=== PATIENT | female | born 1970 | race Caucasian/White ===

== ENCOUNTER → 2017-12-03 | Outpatient (REF) | payer BC | LOC: M SFHCWAGY 13:22 | DX: Z12.4 Encounter for screening for malignant neoplasm of cervix (principal) ==

== ENCOUNTER → 2017-12-03 | Outpatient (CLI) | payer BC | LOC: M WHC 13:10 | DX: Z12.31 Encounter for screening mammogram for malignant neoplasm of breast (principal) | CPT/HCPCS: G0123 ==

== ENCOUNTER → 2018-10-05 | Outpatient (REF) | payer BC ==
[2018-10-05 19:50] LABS: ALBUMIN 3.8 GM/DL (3.2-5.2); ALT/SGPT 16 U/L (12-78); BILIRUBIN,TOTAL 0.5 MG/DL (0.2-1.0); BLOOD UREA NITROGEN 21 MG/DL (7-18); CALCIUM LEVEL 8.9 MG/DL (8.5-10.1); CARBON DIOXIDE LEVEL 29 MEQ/L (21-32); CHLORIDE LEVEL 103 MEQ/L (98-107); CHOLESTEROL LEVEL 181 MG/DL (<200); CHOLESTEROL RISK RATIO 2.291 (<5); FREE T4 0.84 NG/DL (0.76-1.46); GLOMERULAR FILTRATION RATE > 60.0 (>58); GLUCOSE, FASTING 156 MG/DL (70-100); HDL CHOLESTEROL 79 MG/DL (>40); LDL CHOLESTEROL 93 MG/DL (<100); NON-HDL-C 102 MG/DL; POTASSIUM SERUM 4.3 MEQ/L (3.5-5.1); SODIUM LEVEL 137 MEQ/L (136-145); TOTAL PROTEIN 7.4 GM/DL (6.4-8.2); TRIGLYCERIDES LEVEL 47 MG/DL (<150)
[2018-10-05 19:51] LABS: TOTAL 25(OH) VITAMIN D 23.7 NG/ML (30.0-100.0)
[2018-10-05 19:58] LABS: HEMOGLOBIN A1c 9.9 %
[2018-10-05 20:00] LABS: BASO # 0.1 10^3/uL (0.0-0.2); BASO % 0.7 % (0.0-1.0); EOS # 0.1 10^3/uL (0.0-0.50); EOS % 1.4 % (0.0-3.0); HEMATOCRIT 38.9 % (36.0-47.0); HEMOGLOBIN 12.4 g/dl (12.0-15.5); LYMPH # 1.7 10^3/uL (1.5-4.5); LYMPH % 20.5 % (24.0-44.0); MEAN CORPUSCULAR HEMOGLOBIN 28.4 pg (27.0-33.0); MEAN CORPUSCULAR HGB CONC 31.9 g/dl (32.0-36.5); MONO # 0.8 10^3/uL (0.0-0.8); MONO % 9.3 % (0.0-5.0); NEUTROPHILS # 5.6 10^3/uL (1.8-7.7); NEUTROPHILS % 67.9 % (36.0-66.0); PLATELET COUNT, AUTOMATED 317 10^3/uL (150-450); RED BLOOD COUNT 4.37 10^6/uL (4.00-5.40); WHITE BLOOD COUNT 8.3 10^3/uL (4.0-10.0)
== END ==
LOC: M LABDRWAD 18:59
PROVIDERS: ATTEND Physician Assistant
DX: Z13.29 Encounter for screening for other suspected endocrine disorder (principal)

== ENCOUNTER → 2018-12-04 | Outpatient (CLI) | payer BC ==
--- NOTE | 2018-12-05 09:52 | REPMRS ---
Patient History The patient states she had a clinical breast exam in 11/2018. No known family history of cancer. Digital Woman Screen Mammo: December 04, 2018 - Exam #: [id number] Bilateral CC and MLO view(s) were taken. Technologist: Stella Mack, Technologist Prior study comparison: July 07, 2013, digital woman screen mammo performed at [facility]. FINDINGS: There are scattered fibroglandular densities. Bilateral screening digital mammogram with tomosynthesis: The patient states that there are no palpable abnormalities or other breast complaints. The patient's Tyrer-Cuzieck Lifetime Breast Carcinoma Risk is:10.3 There are scattered areas of fibroglandular density.. There is no interval development of dominant mass, areas of architectural distortion, or clustered microcalcification typical of malignancy. There are no additional findings on tomosynthesis. This mammogram was interpreted with the aid of an FDA-approved computer-aided dectection system. A. Negative x-ray reports should not delay biopsy if a dominant or clinically suspicious mass is present. B. Not all cancers are identified by mammography. C. Adenosis and dense breast may obscure an underlying neoplasm. No significant changes when compared with prior studies. Assessment: BI-RADS/ACR category 1 mammogram. Negative Mammogram. Recommendation Routine screening mammogram in 1 year (for women over age 40). This mammogram was interpreted with the aid of an FDA-approved computer-aided dectection system. A. Negative x-ray reports should not delay biopsy if a dominant or clinically suspicious mass is present. B. Not all cancers are identified by mammography. C. Adenosis and dense breast may obscure an underlying neoplasm. Electronically Signed By: Efraín Cassidy M.D. 12/05/18 [id number]
== END ==
LOC: M WHC 13:21
PROVIDERS: ATTEND Nurse Practitioner Women's Health
DX: Z12.31 Encounter for screening mammogram for malignant neoplasm of breast (principal)

== ENCOUNTER → 2018-12-18 | Outpatient (REF) | payer BC ==
[~2018-12-18] MED LIST: INSUHUMDS SC; LEVO150T7; LISI10TA4 PO; PRAV10TA3 PO; SYNT175T2 PO; VITA1CAP25 PO
[2018-12-18 12:56] LABS: BASO % 0.5 % (0.0-1.0); EOS # 0.1 10^3/uL (0.0-0.50); EOS % 1.8 % (0.0-3.0); HEMATOCRIT 38.3 % (36.0-47.0); HEMOGLOBIN 12.5 g/dl (12.0-15.5); LYMPH # 1.6 10^3/uL (1.5-4.5); LYMPH % 20.7 % (24.0-44.0); MEAN CORPUSCULAR HEMOGLOBIN 28.7 pg (27.0-33.0); MEAN CORPUSCULAR HGB CONC 32.6 g/dl (32.0-36.5); MONO # 0.9 10^3/uL (0.0-0.8); MONO % 10.9 % (0.0-5.0); NEUTROPHILS # 5.2 10^3/uL (1.8-7.7); NEUTROPHILS % 65.7 % (36.0-66.0); PLATELET COUNT, AUTOMATED 370 10^3/uL (150-450); RED BLOOD COUNT 4.35 10^6/uL (4.00-5.40); WHITE BLOOD COUNT 7.9 10^3/uL (4.0-10.0)
[2018-12-18 13:23] LABS: ALBUMIN 3.5 GM/DL (3.2-5.2); ALT/SGPT 17 U/L (12-78); BILIRUBIN,TOTAL 0.5 MG/DL (0.2-1.0); BLOOD UREA NITROGEN 20 MG/DL (7-18); CALCIUM LEVEL 8.8 MG/DL (8.5-10.1); CARBON DIOXIDE LEVEL 29 MEQ/L (21-32); CHLORIDE LEVEL 103 MEQ/L (98-107); CREATININE FOR GFR 0.92 MG/DL (0.55-1.30); FREE T4 1.45 NG/DL (0.76-1.46); GLOMERULAR FILTRATION RATE > 60.0 (>58); GLUCOSE, FASTING 296 MG/DL (70-100); POTASSIUM SERUM 4.9 MEQ/L (3.5-5.1); SODIUM LEVEL 137 MEQ/L (136-145); TOTAL PROTEIN 7.5 GM/DL (6.4-8.2)
[2018-12-18 14:54] LABS: HEMOGLOBIN A1c 9.2 %
== END ==
LOC: M LABDRWAD 12:39
PROVIDERS: ATTEND Physician Assistant
DX: E11.65 Type 2 diabetes mellitus with hyperglycemia (principal); E03.9 Hypothyroidism, unspecified

== ENCOUNTER 2018-12-27 15:45 | Inpatient (IN) | payer BC ==
[~2018-12-27] VITALS: Ht 165.1 cm; Wt 90.5 kg
[2018-12-27] MEDS ORDERED: INSUHUMDS SC (16:00)
[2018-12-27] MEDS ORDERED: PRAV10TA3 PO (16:00)
[2018-12-27] MEDS ORDERED: LISI10TA4 PO (16:00)
[2018-12-27] MEDS ORDERED: LEVO150T7 (16:00)
[2018-12-27 16:59] LABS: BASO # 0.1 10^3/uL (0.0-0.2); BASO % 0.4 % (0.0-1.0); EOS % 0.1 % (0.0-3.0); HEMATOCRIT 38.6 % (36.0-47.0); HEMOGLOBIN 12.8 g/dl (12.0-15.5); LYMPH # 0.8 10^3/uL (1.5-4.5); LYMPH % 4.3 % (24.0-44.0); MEAN CORPUSCULAR HEMOGLOBIN 29.6 pg (27.0-33.0); MEAN CORPUSCULAR HGB CONC 33.2 g/dl (32.0-36.5); MEAN CORPUSCULAR VOLUME 89.1 fl (80.0-96.0); MONO # 0.6 10^3/uL (0.0-0.8); MONO % 3.3 % (0.0-5.0); NEUTROPHILS # 17.5 10^3/uL (1.8-7.7); NEUTROPHILS % 91.3 % (36.0-66.0); PLATELET COUNT, AUTOMATED 324 10^3/uL (150-450); RED BLOOD COUNT 4.33 10^6/uL (4.00-5.40); WHITE BLOOD COUNT 19.2 10^3/uL (4.0-10.0)
[2018-12-27] MEDS ORDERED: ONDANSETRON 4MG/2ML VIAL (J2405) As Ordered ONE (17:17)
[2018-12-27] MEDS ORDERED: ONDANSETRON 4MG/2ML VIAL (J2405) IV ONE ×2 (17:30→17:45)
[2018-12-27 17:48] LABS: ALBUMIN 4.1 GM/DL (3.2-5.2); ALT/SGPT 20 U/L (12-78); BILIRUBIN,DIRECT 0.3 MG/DL (0.0-0.2); BILIRUBIN,TOTAL 0.9 MG/DL (0.2-1.0); BLOOD UREA NITROGEN 28 MG/DL (7-18); CALCIUM LEVEL 9.7 MG/DL (8.5-10.1); CARBON DIOXIDE LEVEL 21 MEQ/L (21-32); CHLORIDE LEVEL 100 MEQ/L (98-107); CREATININE FOR GFR 1.26 MG/DL (0.55-1.30); GLOMERULAR FILTRATION RATE 48.2 (>58); GLUCOSE, FASTING 451 MG/DL (70-100); LIPASE 45 U/L (73-393); POTASSIUM SERUM 4.4 MEQ/L (3.5-5.1); SODIUM LEVEL 133 MEQ/L (136-145); TOTAL PROTEIN 8.2 GM/DL (6.4-8.2)
[2018-12-27 17:52] LABS: ABG BASE EXCESS -8.4 (-2.0-2.0); ABG HCO3 16.6 MEQ/L (22.0-26.0); ABG O2 SATURATION 97.6 % (95.0-99.0); ABG PARTIAL PRESSURE CO2 32.8 mmHg (35.0-45.0); ABG PARTIAL PRESSURE O2 103.8 mmHg (75.0-100.0); ABG STANDARD HCO3 17.8 MEQ/L (22.0-26.0); ABG TOTAL CO2 17.6 MEQ/L (22.0-29.0); ABG pH (ARTERIAL) 7.323 UNITS (7.350-7.450)
[2018-12-27] MEDS ORDERED: PROMETHAZINE INJ 25 MG/ML VIAL (J2550) As Ordered ONE (18:26)
[2018-12-27] MEDS ORDERED: NS 1,000 ML IV ONE ×2 (18:30→23:00)
[2018-12-27] MEDS ORDERED: PROMETHAZINE INJ 25 MG/ML VIAL (J2550) IV ONE (18:30)
[2018-12-27] MEDS ORDERED: ISOVUE-370 76% 100ML VIAL (Q9967) As Ordered ONE (18:35)
--- NOTE | 2018-12-27 19:13 | REPVR ---
EXAM: CT Chest With Contrast EXAM DATE/TIME: 12/27/2018 6:30 PM CLINICAL HISTORY: 48 years old, female; Pain; Other: B shoulders; Additional info: Shoulder pain, bilateral TECHNIQUE: Imaging protocol: Axial computed tomography images of the chest with intravenous contrast. Coronal and sagittal reformatted images were created and reviewed. Radiation optimization: All CT scans at this facility use at least one of these dose optimization techniques: automated exposure control; mA and/or kV adjustment per patient size (includes targeted exams where dose is matched to clinical indication); or iterative reconstruction. Contrast material: ISOVUE 370; Contrast volume: 100 ml; Contrast route: IV; COMPARISON: No relevant prior studies available. FINDINGS: Lungs: Pulmonary vascular/interstitial pattern does not suggest active pulmonary edema. No suspicious lung mass or air space process. No central endobronchial lesion. Pleural space: No pleural effusion or pneumothorax. Heart: No cardiac enlargement or pericardial effusion. Aorta: No thoracic aortic aneurysm or dissection. Lymph nodes: No enlarged lymph nodes. Bones/joints: Bony structures show no acute fracture or destructive process. Normal glenohumeral and a.c. joint alignment. No fracture or destructive process. Mild right a.c. joint degenerative osteoarthrosis Soft tissues: No asymmetric abnormality of the extrathoracic soft tissues. IMPRESSION: Unremarkable contrast enhanced CT of the chest. No explanation for acute bilateral shoulder pain Electronically signed by: Hugo Contreras On 12/27/2018 19:13:01 PM
[2018-12-27] MEDS: MORPHINE 2 MG/ML 1ML SYRINGE (J2270) IV PRN ×2 (19:17→23:00)
--- NOTE | 2018-12-27 19:17 | REPVR ---
EXAM: CT Abdomen and Pelvis With Contrast EXAM DATE/TIME: 12/27/2018 6:30 PM CLINICAL HISTORY: 48 years old, female; Vomiting; Abdominal pain; Additional info: Vomiting, abd pain TECHNIQUE: Imaging protocol: Axial computed tomography images of the abdomen and pelvis with intravenous contrast. Coronal and sagittal reformatted images were created and reviewed. Radiation optimization: All CT scans at this facility use at least one of these dose optimization techniques: automated exposure control; mA and/or kV adjustment per patient size (includes targeted exams where dose is matched to clinical indication); or iterative reconstruction. Contrast material: [id number]; Contrast volume: 100 ml; Contrast route: IV; COMPARISON: No relevant prior studies available. FINDINGS: Lungs: No suspicious mass or airspace process in the visualized lung bases. Liver: Liver appears normal with no focal abnormality. Gallbladder and bile ducts: Gallbladder is present and shows no evidence of gallstone. Pancreas: Pancreas appears normal. No focal mass or peripancreatic inflammation. Spleen: Spleen appears homogeneous without focal mass. Adrenals: Adrenal glands are normal in appearance. Kidneys and ureters: Kidneys appear normal, with no stone, solid mass or hydronephrosis. Stomach and bowel: No evidence of small bowel obstruction. No evidence of acute diverticulitis. Appendix: Appendix is not seen. No RLQ inflammation to suggest appendicitis. Intraperitoneal space: No pneumoperitoneum. Vasculature: Main portal and splenic veins enhance normally. Atherosclerotic change present in the aorta, without aneurysm. Lymph nodes: No enlarged lymph nodes. Bladder: Bladder appears normal. Reproductive: No enlargement of the uterus or ovaries. Bones/joints: Bony structures show no acute fracture or destructive process. Soft tissues: No effacement of normal fat planes in the ischiorectal fossa. IMPRESSION: No acute surgical or inflammatory intra-abdominal or pelvic process. No explanation for acute abdominal pain Electronically signed by: Hugo Contreras On 12/27/2018 19:17:08 PM
[2018-12-27 19:26] LABS: ACETONE/KETONE 20.15 MG/DL (<2.81); CPK CREATINE PHOSPHOKINASE 148 U/L (26-192); MB/CK RELATIVE INDEX 1.35 (< OR =4); TROPONIN I < 0.02 NG/ML (< 0.10)
[2018-12-27] MEDS ORDERED: HumaLOG INSULIN (NovoLOG) PER UNIT SC ONE (21:15)
--- NOTE | 2018-12-27 22:24 | REPVR ---
EXAM: US Abdomen Limited, Right Upper Quadrant EXAM DATE/TIME: 12/27/2018 10:14 PM CLINICAL HISTORY: 48 years old, female; Abdominal pain; Acute; Additional info: Ruq pain TECHNIQUE: Imaging protocol: Real-time ultrasound of the abdomen with image documentation. Examination was focused on the right upper quadrant. COMPARISON: CT ABD PELVIS WITH CONTRAST 12/27/2018 6:38 PM FINDINGS: Pancreas is only partially visualized due to bowel shadowing. Pancreas appeared normal on CT earlier today Liver demonstrates homogeneous echotexture, with no focal lesion. Gallbladder is anechoic. No stone, mural edema or pericholecystic fluid. No elicited pain to RUQ transducer pressure during the exam. Common bile duct measures 5 mm in diameter. Right kidney measures 10.3 cm in long axis. Right kidney appears normal. No free fluid. IMPRESSION: Unremarkable sonogram of the right upper quadrant. Electronically signed by: Hugo Contreras On 12/27/2018 22:24:24 PM
[2018-12-27] MEDS ORDERED: HumaLOG INSULIN (NovoLOG) PER UNIT SC STA (23:43)
[2018-12-27] MEDS ORDERED: LEVEMIR (INSULIN DETEMIR) 1 UNITS/0.01ML SC ONE (23:45)
[2018-12-27] MEDS ORDERED: DEXTROSE 50% 50 ML SYRINGE IV PRN (23:45)
[2018-12-27] MEDS ORDERED: GLUCAGON FOR INJ 1 MG VIAL (J1610) SC PRN (23:45)
[2018-12-27] MEDS ORDERED: GLUCOSE 4 GM CHEW TABLET PO PRN (23:45)
[2018-12-27] MEDS ORDERED: NS 1,000 ML IV SCH (23:45)
[2018-12-27] MEDS ORDERED: SYNT175T2 PO (23:58)
[2018-12-27] MEDS ORDERED: VITA1CAP25 PO (23:58)
[2018-12-28] VITALS (8 sets, daily range): BP systolic 88–113; BP diastolic 50–59
[2018-12-28] MEDS ORDERED: ONDANSETRON 4MG/2ML VIAL (J2405) IV PRN (01:15)
--- NOTE | 2018-12-28 01:17 | HPEPDOC ---
General Date of Admission Dec 27, 2018 at 23:43 Date of Service: Dec 27, 2018 Chief Complaint The patient is a 48-year-old female admitted with a reason for visit of Uncontrolled Diabetes Mellitus. History of Present Illness 48-year-old female with past medical history of hypothyroidism, hypertension, type 1 diabetes mellitus on an insulin pump, and dyslipidemia presents to the ER with a chief complaint of intractable nausea/vomiting and diarrhea. The patient states that her symptoms started acutely this morning. Her clinical history is somewhat limited due to her intractable nausea and generalized fatigue. According to the patient's , who is at the bedside, the patient's insulin pump became disconnected earlier today and the patient tried to reconnected on her own. Later in the day, the patient voiced complaints of intractable nausea/vomiting/diarrhea. She also complained of nonspecific abdominal pain. At home, her blood sugar levels were noted to be in the 400s. She came to the ER for further evaluation and management. In the ER, the patient's blood sugar levels noted to be over 400. Initial BMP did not reveal an anion gap. Imaging including a CT of the chest, abdomen, and p viri did not reveal any acute findings. An ultrasound the gallbladder also did not reveal any acute findings. The patient will be admitted to the hospitalist service for further evaluation and management. Home Medications Scheduled Cholecalciferol (Vitamin D3) (Vitamin D3) 50,000 Unit Capsule, 50,000 UNIT PO 1XWK, (Reported) Insulin Human Lispro (Humalog) 100 Unit/1 Ml Vial, 1 UNIT SC SLIDING SCALE, (Reported) INSULIN PUMP Levothyroxine Sodium (Synthroid) 175 Mcg Tablet, 175 MCG PO DAILY, (Reported) Lisinopril (Lisinopril) 10 Mg Tablet, 10 MG PO QHS, (Reported) Pravastatin Sodium (Pravastatin Sodium) 10 Mg Tablet, 10 MG PO QHS, (Reported) Allergies Coded Allergies: No Known Allergies (Unverified , 07/13/08) Past Medical History Medical History As noted in HPI. Social History * Smoker: Denies Alcohol: Denies Drugs: denies Review of Systems Other systems 10 point review of systems negative unless otherwise specified in the HPI. Physical Examination General Exam: Positive: Alert, Cooperative, Mild Distress (secondary to nausea) ENT Exam: Positive: Atraumatic; Negative: Mucous membr. moist/pink (dry mucous membranes) Neck Exam: Negative: JVD Chest Exam: Positive: Clear to auscultation, Normal air movement Heart Exam: Positive: Tachycardic, Normal S1, Normal S2 Telemetry: Positive: Sinus Abdomen Exam: Positive: BS Hyperactive, Soft, Tenderness (mild tenderness to deep palpation in all quadrants, no rebound tenderness, guarding, or rigidity noted.) Extremity Exam: Negative: Tenderness, Swelling Psych Exam: Positive: Oriented x 3 Vital Signs Vital Signs Date Time Temp Pulse Resp B/P (MAP) Pulse Ox O2 Delivery O2 Flow Rate FiO2 12/27/18 23:00 19 12/27/18 18:46 108 128/71 (90) 100 Room Air 12/27/18 15:54 97.2 Laboratory Data Labs 24H Laboratory Tests 2 12/27/18 15:56: Bedside Glucose (Misc Panel) 478H 12/27/18 16:26: Immature Granulocyte % (Auto) 0.6, White Blood Count 19.2H, Red Blood Count 4.33, Hemoglobin 12.8, Hematocrit 38.6, Mean Corpuscular Volume 89.1, Mean Corpuscular Hemoglobin 29.6, Mean Corpuscular Hemoglobin Concent 33.2, Red Cell Distribution Width 12.3, Platelet Count 324, Neutrophils (%) (Auto) 91.3H, Lymphocytes (%) (Auto) 4.3L, Monocytes (%) (Auto) 3.3, Eosinophils (%) (Auto) 0.1, Basophils (%) (Auto) 0.4, Neutrophils # (Auto) 17.5H, Lymphocytes # (Auto) 0.8L, Monocytes # (Auto) 0.6, Eosinophils # (Auto) 0.0, Basophils # (Auto) 0.1, Nucleated Red Blood Cells % (auto) 0.0, Anion Gap 12, Glomerular Filtration Rate 48.2L, Calcium Level 9.7, Aspartate Amino Transf (AST/SGOT) 20, Alanine Aminotransferase (ALT/SGPT) 20, Alkaline Phosphatase 100, Total Bilirubin 0.9, Direct Bilirubin 0.3H, Total Creatine Kinase 148, Creatine Kinase MB 2.0, Creatine Kinase MB Relative Index 1.35, Troponin I < 0.02, Total Protein 8.2, Albumin 4.1, Albumin/Globulin Ratio 1.00, Lipase 45L, B-Hydroxybutyrate 20.15H 12/27/18 17:42: Blood Gas Bicarbonate Standard 17.8L, Arterial Blood pH 7.323L, Arterial Blood Partial Pressure CO2 32.8L, Arterial Blood Partial Pressure O2 103.8H, Arterial Blood Total CO2 17.6L, Arterial Blood HCO3 16.6L, Arterial Blood Base Excess - 8.4L, Arterial Blood Oxygen Saturation 97.6 12/27/18 20:32: Bedside Glucose (Misc Panel) 424H 12/27/18 23:48: Bedside Glucose (Misc Panel) 462H 12/28/18 01:01: CBC/BMP Laboratory Tests 12/27/18 16:26 Red Blood Count 4.33, Mean Corpuscular Volume 89.1, Mean Corpuscular Hemoglobin 29.6, Mean Corpuscular Hemoglobin Concent 33.2, Red Cell Distribution Width 12.3, Neutrophils (%) (Auto) 91.3 H, Lymphocytes (%) (Auto) 4.3 L, Monocytes (%) (Auto) 3.3, Eosinophils (%) (Auto) 0.1, Basophils (%) (Auto) 0.4, Neutrophils # (Auto) 17.5 H, Lymphocytes # (Auto) 0.8 L, Monocytes # (Auto) 0.6, Eosinophils # (Auto) 0.0, Basophils # (Auto) 0.1 Plan / VTE VTE Prophylaxis Ordered?: Yes Plan Plan Uncontrolled Hyperglycemia in a Type 1 Diabetic possibly 2/2 Viral Gastroenteritis, Insulin Pump Malfunction CT Chest, abd, pel, and U/S GB with no acute findings Initial lab work with no anion gap noted, we will cont to monitor this closely We will continue to treat the patient IV fluid hydration, basal and bolus insulin coverage, and frequent monitoring of her fingersticks and laboratory values. We have instructed the patient not to use her insulin pump at this time, as we will be giving her insulin coverage subcutaneously. We will continue to monitor the patient, and keep her nothing by mouth at this time. Renal Insufficiency 2/2 Above Cont IVF Hydration Hold Nephrotoxins We will f/u with Repeat BMP Hypertension Lisinopril on hold 2/2 above Hypothyroidism Continue levothyroxine Dyslipidemia Continue statin DVT prophylaxis Continue RANDALL Snyder MD Dec 28, 2018 01:16
[2018-12-28 02:38] LABS: CREATININE FOR GFR 1.31 MG/DL (0.55-1.30); GLOMERULAR FILTRATION RATE 46.1 (>58)
[2018-12-28 02:39] LABS: CALCIUM LEVEL 8.3 MG/DL (8.5-10.1); MAGNESIUM LEVEL 2.1 MG/DL (1.8-2.4); POTASSIUM SERUM 3.7 MEQ/L (3.5-5.1)
[2018-12-28] MEDS ORDERED: POTASSIUM CHLORIDE 10 MEQ SR TABLET PO ONE ×2 (02:45→08:15)
[2018-12-28] MEDS ORDERED: NS 0.45% 1,000 ML IV SCH (02:45)
[2018-12-28] MEDS ORDERED: INSULIN HUMAN REGULAR 100 UNITS in NS 99 ML IV SCH (03:15)
[2018-12-28] MEDS: ENOXAPARIN 40 MG/0.4 ML SYRINGE (J1650) SC SCH (05:16)
[2018-12-28] MEDS: LEVOTHYROXINE 100MCG TABLET (0.1MG) PO SCH (05:17)
[2018-12-28] MEDS: LEVOTHYROXINE 75MCG TABLET (0.075MG) PO SCH (05:17)
[2018-12-28] MEDS: INSULIN IV RATE CHANGE DOCUMENTATION ML/HR XX SCH ×2 (06:03→07:00)
[2018-12-28] MEDS ORDERED: D5W/0.45% SODIUM CHLORIDE 1,000 ML IV SCH (06:15)
[2018-12-28 07:03] LABS: HEMATOCRIT 31.3 % (36.0-47.0); MEAN CORPUSCULAR HEMOGLOBIN 29.5 pg (27.0-33.0); MEAN CORPUSCULAR HGB CONC 32.6 g/dl (32.0-36.5); MEAN CORPUSCULAR VOLUME 90.5 fl (80.0-96.0); PLATELET COUNT, AUTOMATED 287 10^3/uL (150-450); RED BLOOD COUNT 3.46 10^6/uL (4.00-5.40); WHITE BLOOD COUNT 20.2 10^3/uL (4.0-10.0)
[2018-12-28 07:05] LABS: HEMOGLOBIN 10.2 g/dl (12.0-15.5)
[2018-12-28 07:43] LABS: ALBUMIN 2.8 GM/DL (3.2-5.2); BILIRUBIN,TOTAL 0.4 MG/DL (0.2-1.0); CALCIUM LEVEL 8.2 MG/DL (8.5-10.1); CREATININE FOR GFR 1.26 MG/DL (0.55-1.30); GLOMERULAR FILTRATION RATE 48.2 (>58); POTASSIUM SERUM 3.3 MEQ/L (3.5-5.1); TOTAL PROTEIN 6.3 GM/DL (6.4-8.2)
[2018-12-28] MEDS ORDERED: LEVEMIR (INSULIN DETEMIR) 1 UNITS/0.01ML SC SCH (09:00)
[2018-12-28] MEDS: LEVEMIR (INSULIN DETEMIR) 1 UNITS/0.01ML SC SCH ×2 (09:11→22:00)
[2018-12-28 09:29] LABS: ABG BASE EXCESS -5.6 (-2.0-2.0); ABG HCO3 18.5 MEQ/L (22.0-26.0); ABG O2 SATURATION 97.2 % (95.0-99.0); ABG PARTIAL PRESSURE CO2 31.5 mmHg (35.0-45.0); ABG PARTIAL PRESSURE O2 90.5 mmHg (75.0-100.0); ABG STANDARD HCO3 19.9 MEQ/L (22.0-26.0); ABG TOTAL CO2 19.5 MEQ/L (22.0-29.0); ABG pH (ARTERIAL) 7.387 UNITS (7.350-7.450)
[2018-12-28 09:49] LABS: CALCIUM LEVEL 8.1 MG/DL (8.5-10.1); CREATININE FOR GFR 1.27 MG/DL (0.55-1.30); GLOMERULAR FILTRATION RATE 47.8 (>58); POTASSIUM SERUM 3.6 MEQ/L (3.5-5.1)
[2018-12-28] MEDS: CEPACOL LOZENGE PO PRN ×3 (11:28→20:12)
[2018-12-28] MEDS ORDERED: NS 1,000 ML IV ONE ×2 (12:00→17:00)
[2018-12-28 12:42] LABS: CREATININE FOR GFR 1.27 MG/DL (0.55-1.30); GLOMERULAR FILTRATION RATE 47.8 (>58); POTASSIUM SERUM 4.2 MEQ/L (3.5-5.1)
[2018-12-28] MEDS: HumaLOG INSULIN (NovoLOG) PER UNIT SC SCH ×2 (12:50→20:00)
[2018-12-28 16:04] LABS: CALCIUM LEVEL 7.7 MG/DL (8.5-10.1); CREATININE FOR GFR 1.33 MG/DL (0.55-1.30); GLOMERULAR FILTRATION RATE 45.3 (>58); POTASSIUM SERUM 4.5 MEQ/L (3.5-5.1)
--- NOTE | 2018-12-28 17:10 | IPNPDOC ---
Date Seen The patient was seen on 12/28/18. Progress Note SUBJECTIVE: still c/o mild abd pain diffuse /10 no nausea, vomiting, cough, sob, fever or chills. sbp 88mmHg s/p NS 1liter bolus. urine output has been minimal. CT chest, abd, pelvis is negative, but wbc 22, and procalcitonin 40 are worrisome for early bacterial infection. empirically on iv zosyn until white count and abdominal pain improve.no dysuria, urgency, frequency, flank pain. no cellulitic skin lesions. She complains of not being able to get any sleep last night into early this morn ing. Physical Examination VITALS: PLS SEE BELOW General Exam: arousable but goes back to sleep quickly. answers questions appropriately. ENT Exam: Positive: Atraumatic; Negative: Mucous membr. moist/pink (dry mucous membranes) Neck Exam: Negative: JVD Chest Exam: Positive: Clear to auscultation, Normal air movement Heart Exam: Positive: Tachycardic, Normal S1, Normal S2 Telemetry: Positive: Sinus Abdomen Exam: Positive: BS Hyperactive, Soft, Tenderness (mild tenderness to deep palpation in all quadrants, no rebound tenderness, guarding, or rigidity noted.) Extremity Exam: Negative: Tenderness, Swelling LABORATORY DATA, IMAGING STUDIES, MICROBIOLOGY: PLS SEE BELOW Assessment/Plan 48-year-old female with past medical history of hypothyroidism, hypertension, type 1 diabetes mellitus on an insulin pump, and dyslipidemia presents to the ER with a chief complaint of intractable nausea/vomiting and diarrhea. The patient states that her symptoms started acutely this morning. Her clinical history is somewhat limited due to her intractable nausea and generalized fatigue. According to the patient's , who is at the bedside, the patient's insulin pump became disconnected earlier today and the patient tried to reconnected on her own. Later in the day, the patient voiced complaints of intractable nausea/vomiting/diarrhea. She also complained of nonspecific abdominal pain. At home, her blood sugar levels were noted to be in the 400s. She came to the ER for further evaluation and management.In the ER, the patient's blood sugar levels noted to be over 400. Initial BMP did not reveal an anion gap. Imaging including a CT of the chest, abdomen, and pelvis did not reveal any acute findings. An ultrasound the gallbladder also did not reveal any acute findings. The patient will be admitted to the hospitalist service for further evaluation and management. DKA (+) serum ketones (+) high anion gap, resolved with insulin gtt Type 1 Diabetic possibly 2/2 Viral Gastroenteritis, Insulin Pump Malfunction CT Chest, abd, pel, and U/S GB with no acute findings Initial lab work with no anion gap noted, we will cont to monitor this closely We will continue to treat the patient IV fluid hydration, basal and bolus insulin coverage, and frequent monitoring of her fingersticks and laboratory values. We have instructed the patient not to use her insulin pump at this time, as we will be giving her insulin coverage subcutaneously. We will continue to monitor the patient, and kept her npo initially. SIRS wbc 22, tachycardic empiric abx iv zosyn due to hypotension [address] chest abd pelvis for source of infection Renal Insufficiency 2/2 Above Cont IVF Hydration Hold Nephrotoxins serial BMP strict i/o monitor urien output. Hypertension Lisinopril on hold 2/2 above currently with low blood pressure s/p ns iv bolus monitor urine output Hypothyroidism Continue levothyroxine Dyslipidemia Continue statin DVT prophylaxis Continue Lovenox VS, I&O, 24H, Fishbone Vital Signs/I&O Vital Signs Date Time Temp Pulse Resp B/P (MAP) Pulse Ox O2 Delivery O2 Flow Rate FiO2 12/28/18 05:21 99.8 114 20 107/54 (71) 100 12/28/18 04:28 Room Air I&O- Last 24 Hours up to 6 AM 12/28/18 06:00 Intake Total 2129 ml Balance 2129 ml Laboratory Data 24H LABS Laboratory Tests 2 12/27/18 15:56: Bedside Glucose (Misc Panel) 478H 12/27/18 16:26: Immature Granulocyte % (Auto) 0.6, White Blood Count 19.2H, Red Blood Count 4.33, Hemoglobin 12.8, Hematocrit 38.6, Mean Corpuscular Volume 89.1, Mean Corpuscular Hemoglobin 29.6, Mean Corpuscular Hemoglobin Concent 33.2, Red Cell Distribution Width 12.3, Platelet Count 324, Neutrophils (%) (Auto) 91.3H, Lymphocytes (%) (Auto) 4.3L, Monocytes (%) (Auto) 3.3, Eosinophils (%) (Auto) 0.1, Basophils (%) (Auto) 0.4, Neutrophils # (Auto) 17.5H, Lymphocytes # (Auto) 0.8L, Monocytes # (Auto) 0.6, Eosinophils # (Auto) 0.0, Basophils # (Auto) 0.1, Nucleated Red Blood Cells % (auto) 0.0, Anion Gap 12, Glomerular Filtration Rate 48.2L, Calcium Level 9.7, Aspartate Amino Transf (AST/SGOT) 20, Alanine Aminotransferase (ALT/SGPT) 20, Alkaline Phosphatase 100, Total Bilirubin 0.9, Direct Bilirubin 0.3H, Total Creatine Kinase 148, Creatine Kinase MB 2.0, Creatine Kinase MB Relative Index 1.35, Troponin I < 0.02, Total Protein 8.2, Albumin 4.1, Albumin/Globulin Ratio 1.00, Lipase 45L, B-Hydroxybutyrate 20.15H 12/27/18 17:42: Blood Gas Bicarbonate Standard 17.8L, Arterial Blood pH 7.323L, Arterial Blood Partial Pressure CO2 32.8L, Arterial Blood Partial Pressure O2 103.8H, Arterial Blood Total CO2 17.6L, Arterial Blood HCO3 16.6L, Arterial Blood Base Excess - 8.4L, Arterial Blood Oxygen Saturation 97.6 12/27/18 20:32: Bedside Glucose (Misc Panel) 424H 12/27/18 23:48: Bedside Glucose (Misc Panel) 462H 12/28/18 01:01: Anion Gap 17H, Glomerular Filtration Rate 46.1L, Blood Urea Nitrogen 28H, Creatinine 1.31H, Sodium Level 142#, Potassium Level 3.7, Chloride Level 111H, Carbon Dioxide Level 14L, Calcium Level 8.3L, Magnesium Level 2.1 12/28/18 03:56: Bedside Glucose (Misc Panel) 241H 12/28/18 05:50: Bedside Glucose (Misc Panel) 177H 12/28/18 06:34: Nucleated Red Blood Cells % (auto) 0.0 12/28/18 07:12: Bedside Glucose (Misc Panel) 169H CBC/BMP Laboratory Tests 12/27/18 16:26 Red Blood Count 4.33, Mean Corpuscular Volume 89.1, Mean Corpuscular Hemoglobin 29.6, Mean Corpuscular Hemoglobin Concent 33.2, Red Cell Distribution Width 12.3, Neutrophils (%) (Auto) 91.3 H, Lymphocytes (%) (Auto) 4.3 L, Monocytes (%) (Auto) 3.3, Eosinophils (%) (Auto) 0.1, Basophils (%) (Auto) 0.4, Neutrophils # (Auto) 17.5 H, Lymphocytes # (Auto) 0.8 L, Monocytes # (Auto) 0.6, Eosinophils # (Auto) 0.0, Basophils # (Auto) 0.1 12/28/18 01:01 Calcium Level 8.3 L 12/28/18 06:34 Red Blood Count 3.46 L, Mean Corpuscular Volume 90.5, Mean Corpuscular Hemoglobin 29.5, Mean Corpuscular Hemoglobin Concent 32.6, Red Cell Distribution Width 12.8 OLIVIA URBANO MD Dec 28, 2018 07:42
[2018-12-28] MEDS: NS 1,000 ML IV SCH (18:00)
[2018-12-28] MEDS: PIPERACILLIN/TAZOBACTAM SOD 3.375 GM in D5W MINI-BAG PLUS 50 ML IV SCH ×2 (18:15→23:47)
[2018-12-28 18:31] LABS: HEMOGLOBIN A1c 8.8 %
[2018-12-28] MEDS: PRAVASTATIN 10 MG TAB PO SCH (20:12)
--- NOTE | 2018-12-28 20:36 | ECGEPIP ---
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
[2018-12-28] MEDS ORDERED: LISINOPRIL 10 MG TAB PO SCH (21:00)
[2018-12-28] MEDS ORDERED: HumaLOG INSULIN (NovoLOG) PER UNIT SC SCH ×2 (21:00)
[2018-12-29 04:15] VITALS: BP 131/74
[2018-12-29] MEDS: PIPERACILLIN/TAZOBACTAM SOD 3.375 GM in D5W MINI-BAG PLUS 50 ML IV SCH ×4 (04:17→23:41)
[2018-12-29] MEDS: CEPACOL LOZENGE PO PRN ×2 (04:27→23:11)
[2018-12-29] MEDS: ACETAMINOPHEN TAB 650MG DOSE (2X325MG) PO PRN ×2 (04:28→08:51)
[2018-12-29] MEDS: NS 1,000 ML IV SCH (06:29)
[2018-12-29] MEDS: ENOXAPARIN 40 MG/0.4 ML SYRINGE (J1650) SC SCH (06:29)
[2018-12-29] MEDS: LEVOTHYROXINE 100MCG TABLET (0.1MG) PO SCH (06:29)
[2018-12-29] MEDS: LEVOTHYROXINE 75MCG TABLET (0.075MG) PO SCH (06:29)
[2018-12-29 06:35] LABS: HEMATOCRIT 29.1 % (36.0-47.0); HEMOGLOBIN 9.4 g/dl (12.0-15.5); MEAN CORPUSCULAR HEMOGLOBIN 28.7 pg (27.0-33.0); MEAN CORPUSCULAR HGB CONC 32.3 g/dl (32.0-36.5); PLATELET COUNT, AUTOMATED 245 10^3/uL (150-450); RED BLOOD COUNT 3.27 10^6/uL (4.00-5.40)
[2018-12-29 07:07] LABS: CALCIUM LEVEL 7.5 MG/DL (8.5-10.1); CREATININE FOR GFR 1.07 MG/DL (0.55-1.30); GLOMERULAR FILTRATION RATE 58.3 (>58); POTASSIUM SERUM 4.3 MEQ/L (3.5-5.1)
[2018-12-29 08:00] VITALS: BP 131/73
[2018-12-29] MEDS: HumaLOG INSULIN (NovoLOG) PER UNIT SC SCH ×2 (08:39→13:39)
[2018-12-29] MEDS: LEVEMIR (INSULIN DETEMIR) 1 UNITS/0.01ML SC SCH (08:52)
[2018-12-29] MEDS ORDERED: HumaLOG INSULIN (NovoLOG) PER UNIT As Ordered ONE (13:36)
[2018-12-29] MEDS ORDERED: SLF 3 ML SYR IV PRN (14:15)
[2018-12-29 16:00] VITALS: BP 139/80
--- NOTE | 2018-12-29 17:10 | IPNPDOC ---
Text Note Date of Service The patient was seen on 12/29/18. NOTE S: patient admitted with DKA/SIRS. She was admitted with Abdomen pain, N,V, diarrhea and fever/cough. Patient states feels better and wants to go home. States no fever, no abdomen pain ,no N, no V, no more diarrhea. no other ill contacts at home. She is usually on insulin pump at home and has basal rate of 18.7 units and intermittent bolus rate depending on scale set up at [facility]. She is no longer in DKA. present in room O: Vitals as below General: pleasant, NAD AAOx3 HRRR no murmur LCTA no W/R/R Ext: no edema Abdomen: soft NT ND NABS Skin: no rashes or cellulitis; foot exam normal A/P: DKA - resolved (no longer with high anion gap). Was on insulin gtt Type 1 Diabetic possibly 2/2 Viral Gastroenteritis, Insulin Pump Malfunction CT Chest, abd, pel, and U/S GB with no acute findings restart insulin pump Diabetes - on [employer] insulin with insulin pump, with neuropathy, with hyperglycemia Restart insulin pump and d/c levemir/SSI SIRS (tachycardia,hypotension) - unknown source; initial wbc 22, with PCT 41; was started on empiric zosyn; unfortunately blood cultures not obtained. Repeat PCT improving (31). continue with zosyn and repeat PCT in AM. If fever - check blood cultures. Vamshi with CKD III due to DKA - RESOLVED d/c IVF and saline lock; Hold Nephrotoxins Hypertension - Lisinopril on hold due to hypotension, VAMSHI/CKD - will restart med Hypothyroidism - Continue levothyroxine Dyslipidemia - Continue statin DVT prophylaxis -lovenox VS,Fishbone, I+O VS, Fishbone, I+O Laboratory Tests 12/28/18 11:58 Calcium Level 8.0 L 12/28/18 15:22 Calcium Level 7.7 L 12/29/18 06:19 Calcium Level 7.5 L, Red Blood Count 3.27 L, Mean Corpuscular Volume 89.0, Mean Corpuscular Hemoglobin 28.7, Mean Corpuscular Hemoglobin Concent 32.3, Red Cell Distribution Width 13.1 Vital Signs Date Time Temp Pulse Resp B/P (MAP) Pulse Ox O2 Delivery O2 Flow Rate FiO2 12/29/18 08:00 98.1 94 18 131/73 (92) 96 12/28/18 04:28 Room Air I&O- Last 24 Hours up to 6 AM 12/29/18 06:00 Intake Total 1225 ml Output Total 2000 ml Balance -775 ml NICOLE ERNST DO Dec 29, 2018 11:20
--- NOTE | 2018-12-29 19:39 | REP ---
CHEST, TWO VIEWS: Two views of the chest are performed. There are small bilateral pleural effusions, with mild fluid in the right minor fissure. There is mild right base interstitial infiltrate. No definite infiltrate is seen on the left. The heart is not enlarged. The mediastinal silhouette is unremarkable. IMPRESSION: Small bilateral pleural effusions with right basilar interstitial infiltrate. Electronically Signed by Efraín Talavera MD 12/31/2018 11:34 A
[2018-12-29 20:00] VITALS: BP 136/75
[2018-12-29] MEDS ORDERED: LISINOPRIL 10 MG TAB PO SCH (21:00)
[2018-12-29 21:11] VITALS: BP 136/75
[2018-12-29] MEDS: PRAVASTATIN 10 MG TAB PO SCH (21:11)
[2018-12-29] MEDS: SLF 3 ML SYR IV SCH (23:42)
[2018-12-30] VITALS: BP 157/81
[2018-12-30] MEDS: BENZOCAINE 10% 9GM TUBE (ANBESOL) MT SCH ×2 (02:07→09:34)
[2018-12-30] MEDS: CEPACOL LOZENGE PO PRN (02:17)
[2018-12-30] MEDS: PIPERACILLIN/TAZOBACTAM SOD 3.375 GM in D5W MINI-BAG PLUS 50 ML IV SCH ×2 (05:56→11:00)
[2018-12-30] MEDS: LEVOTHYROXINE 75MCG TABLET (0.075MG) PO SCH (05:57)
[2018-12-30] MEDS: LEVOTHYROXINE 100MCG TABLET (0.1MG) PO SCH (05:57)
[2018-12-30] MEDS: SLF 3 ML SYR IV SCH (05:58)
[2018-12-30] MEDS: ENOXAPARIN 40 MG/0.4 ML SYRINGE (J1650) SC SCH (05:58)
[2018-12-30 06:52] LABS: MEAN CORPUSCULAR HEMOGLOBIN 28.5 pg (27.0-33.0); MEAN CORPUSCULAR HGB CONC 33.3 g/dl (32.0-36.5); MEAN CORPUSCULAR VOLUME 85.5 fl (80.0-96.0); PLATELET COUNT, AUTOMATED 256 10^3/uL (150-450); RED BLOOD COUNT 3.51 10^6/uL (4.00-5.40); WHITE BLOOD COUNT 8.9 10^3/uL (4.0-10.0)
[2018-12-30 07:15] LABS: ALBUMIN 2.7 GM/DL (3.2-5.2); ALT/SGPT 85 U/L (12-78); BILIRUBIN,TOTAL 0.4 MG/DL (0.2-1.0); BLOOD UREA NITROGEN 7 MG/DL (7-18); CALCIUM LEVEL 8.3 MG/DL (8.5-10.1); CARBON DIOXIDE LEVEL 28 MEQ/L (21-32); CHLORIDE LEVEL 107 MEQ/L (98-107); CREATININE FOR GFR 0.74 MG/DL (0.55-1.30); GLOMERULAR FILTRATION RATE > 60.0 (>58); GLUCOSE, FASTING 105 MG/DL (70-100); POTASSIUM SERUM 3.5 MEQ/L (3.5-5.1); SODIUM LEVEL 141 MEQ/L (136-145); TOTAL PROTEIN 6.2 GM/DL (6.4-8.2)
[2018-12-30] MEDS ORDERED: ENTER DRUG NAME HERE (PATIENT'S OWN MED) SC SCH (09:00)
[2018-12-30] MEDS ORDERED: SORE15LO PO (09:24)
[2018-12-30] MEDS ORDERED: AMOX875T2 PO (09:24)
[2018-12-30 09:30] VITALS: BP 145/83
--- NOTE | 2018-12-30 20:54 | DS.PDOC ---
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 HISTORY OF PRESENT ILLNESS: 48-year-old female with past medical history of hypothyroidism, hypertension, type 1 diabetes mellitus on an insulin pump, and dyslipidemia presents to the ER with a chief complaint of intractable nausea/vomiting and diarrhea. She was found to be in DKA. see H&P for details. HOSPITAL COURSE: Patient was placed on insulin drip and DKA resolved. Her insulin pump was disconnected during DKA treatment and restarted 24 hours prior to discharge. She had had elevated WBC that persisted after DKA was treated. She was placed on zosyn impirically on admission. Repeat CXR right basal infiltrate. Her initial wbc 22, with PCT 41 improved and she was changed to augmentin at discharge. unfortunately blood cultures not obtained. Her WBC was 8.9 and procalcitonin 14.3 at discharge. Her abdomen pain resolved. Patient was discharged in stable and improved condition. DISCHARGE MEDICATIONS: Please see below. ALLERGIES: Please see below. PHYSICAL EXAMINATION ON DISCHARGE: VITAL SIGNS: Please see below. General: pleasant, NAD AAOx3 HRRR no murmur LCTA no W/R/R LABORATORY DATA: Please see below. ACTIVITY: as tolerated DIET: carbohydrate consistent DISCHARGE PLAN: discharge home DISCHARGE INSTRUCTIONS: 1. repeat liver function test in 1 week 2. follow up in 5-7 days with PCP to recheck right basal pneumonia DISCHARGE CONDITION: stable TIME SPENT ON DISCHARGE: 30 minutes. Vital Signs/I&Os Vital Signs Date Time Temp Pulse Resp B/P (MAP) Pulse Ox O2 Delivery O2 Flow Rate FiO2 12/30/18 00:00 99.1 86 20 157/81 (106) 97 12/28/18 04:28 Room Air I&O- Last 24 Hours up to 6 AM 12/30/18 06:00 Intake Total 2180 ml Output Total 3300 ml Balance -1120 ml Laboratory Data Labs 24H Laboratory Tests 2 12/29/18 11:47: Bedside Glucose (Misc Panel) 201H 12/29/18 17:42: Bedside Glucose (Misc Panel) 236H 12/29/18 20:38: Bedside Glucose (Misc Panel) 186H 12/30/18 06:31: Nucleated Red Blood Cells % (auto) 0.0, Anion Gap 6L, Glomerular Filtration Rate > 60.0, Blood Urea Nitrogen 7#, Creatinine 0.74, Sodium Level 141, Potassium Level 3.5, Chloride Level 107, Carbon Dioxide Level 28, Calcium Level 8.3L, Aspartate Amino Transf (AST/SGOT) 117H, Alanine Aminotransferase (ALT/SGPT) 85H, Alkaline Phosphatase 106, Total Bilirubin 0.4, Total Protein 6.2L, Albumin 2.7L, Albumin/Globulin Ratio 0.77L CBC/BMP Laboratory Tests 12/30/18 06:31 Red Blood Count 3.51 L, Mean Corpuscular Volume 85.5, Mean Corpuscular Hemoglobin 28.5, Mean Corpuscular Hemoglobin Concent 33.3, Red Cell Distribution Width 12.6, Calcium Level 8.3 L, Aspartate Amino Transf (AST/SGOT) 117 H, Alanine Aminotransferase (ALT/SGPT) 85 H, Alkaline Phosphatase 106, Total Bilir ubin 0.4, Total Protein 6.2 L, Albumin 2.7 L FSBS Laboratory Tests Test 12/29/18 11:47 12/29/18 17:42 12/29/18 20:38 Range/Units Bedside Glucose (Misc Panel) 201 236 186 70-105 MG/DL Microbiology Microbiology 12/29/18 Gastrointestinal Tract Panel (PCR) - Final, Complete 12/30/18 Eye/Ear/Nose/Throat Culture, Received Pending 12/28/18 Respiratory Virus Panel (PCR) (ARIEL) - Final, Complete 12/28/18 Urine Culture - Final, Complete Discharge Medications Scheduled Amoxicillin/Potassium Clav (Amox-Clav 875-125 mg Tablet) 1 Each Tablet, 1 TAB PO BID Cholecalciferol (Vitamin D3) (Vitamin D3) 50,000 Unit Capsule, 50,000 UNIT PO 1XWK, (Reported) Insulin Human Lispro (Humalog) 100 Unit/1 Ml Vial, 1 UNIT SC SLIDING SCALE, (Reported) INSULIN PUMP Levothyroxine Sodium (Synthroid) 175 Mcg Tablet, 175 MCG PO DAILY, (Reported) Lisinopril (Lisinopril) 10 Mg Tablet, 10 MG PO QHS, (Reported) Pravastatin Sodium (Pravastatin Sodium) 10 Mg Tablet, 10 MG PO QHS, (Reported) Scheduled PRN Benzocaine/Menthol (Sore Throat Lozenge) 1 Each Lozenge, 1 MONTSE PO Q2HP PRN for SORE THROAT Allergies Coded Allergies: No Known Allergies (Unverified , 07/13/08) NICOLE ERNST DO Dec 30, 2018 09:27
== END 2018-12-30 12:10 | disposition home or self-care (01) | DRG 813 ==
LOC: M ED 15:45 → M ED INP 23:43 → M ICU 12-28 05:04 → M PED 12-28 19:03
PROVIDERS: ADMIT Internal Medicine; ATTEND Family Medicine
DX: T85.614A Breakdown (mechanical) of insulin pump, initial encounter (principal); E10.11 Type 1 diabetes mellitus with ketoacidosis with coma; N17.9 Acute kidney failure, unspecified; J15.9 Unspecified bacterial pneumonia; R65.10 Systemic inflammatory response syndrome (SIRS) of non-infectious origin without acute organ dysfunction; E10.65 Type 1 diabetes mellitus with hyperglycemia; T38.3X6A Underdosing of insulin and oral hypoglycemic [antidiabetic] drugs, initial encounter; E78.5 Hyperlipidemia, unspecified; E03.9 Hypothyroidism, unspecified; I10 Essential (primary) hypertension; A08.4 Viral intestinal infection, unspecified; N28.9 Disorder of kidney and ureter, unspecified; Z79.4 Long term (current) use of insulin; Z79.899 Other long term (current) drug therapy; Y83.1 Surgical operation with implant of artificial internal device as the cause of abnormal reaction of the patient, or of later complication, without mention of misadventure at the time of the procedure

== ENCOUNTER → 2019-04-01 | Outpatient (REF) | payer BC ==
[~2019-04-01] MED LIST changes: +AMOX875T2 PO; +SORE15LO PO
[2019-04-01 16:15] LABS: BASO # 0.1 10^3/uL (0.0-0.2); BASO % 0.8 % (0.0-1.0); EOS # 0.2 10^3/uL (0.0-0.5); EOS % 2.4 % (0.0-3.0); HEMOGLOBIN 12.7 g/dl (12.0-15.5); LYMPH # 1.9 10^3/uL (1.5-5.0); LYMPH % 28.9 % (24.0-44.0); MEAN CORPUSCULAR HEMOGLOBIN 29.5 pg (27.0-33.0); MEAN CORPUSCULAR HGB CONC 32.6 g/dl (32.0-36.5); MEAN CORPUSCULAR VOLUME 90.5 fl (80.0-96.0); MONO # 0.6 10^3/uL (0.0-0.8); MONO % 9.1 % (0.0-5.0); NEUTROPHILS # 3.9 10^3/uL (1.5-8.5); NEUTROPHILS % 58.5 % (36.0-66.0); PLATELET COUNT, AUTOMATED 373 10^3/uL (150-450); RED BLOOD COUNT 4.31 10^6/uL (4.00-5.40); WHITE BLOOD COUNT 6.6 10^3/uL (4.0-10.0)
[2019-04-01 16:26] LABS: ALBUMIN 3.3 GM/DL (3.2-5.2); ALT/SGPT 19 U/L (12-78); BILIRUBIN,TOTAL 0.5 MG/DL (0.2-1.0); BLOOD UREA NITROGEN 19 MG/DL (7-18); CALCIUM LEVEL 8.9 MG/DL (8.5-10.1); CARBON DIOXIDE LEVEL 31 MEQ/L (21-32); CHLORIDE LEVEL 102 MEQ/L (98-107); CHOLESTEROL LEVEL 138 MG/DL (<200); CREATININE FOR GFR 0.85 MG/DL (0.55-1.30); FREE T4 1.13 NG/DL (0.76-1.46); GLOMERULAR FILTRATION RATE > 60.0 (>58); GLUCOSE, FASTING 86 MG/DL (70-100); HDL CHOLESTEROL 66 MG/DL (>40); LDL CHOLESTEROL 62 MG/DL (<100); NON-HDL-C 72 MG/DL; POTASSIUM SERUM 5.1 MEQ/L (3.5-5.1); SODIUM LEVEL 137 MEQ/L (136-145); TOTAL PROTEIN 7.2 GM/DL (6.4-8.2); TRIGLYCERIDES LEVEL 50 MG/DL (<150)
[2019-04-01 16:41] LABS: HEMOGLOBIN A1c 8.5 %
[2019-04-01 16:58] LABS: MALB URINE SIEMENS 94.5 MG/L; MAU/CREAT RATIO 44.5 MCG/MG (0.0-30.0)
== END ==
LOC: M LABDRWAD 15:49
PROVIDERS: ATTEND Physician Assistant
DX: E11.65 Type 2 diabetes mellitus with hyperglycemia (principal)

== ENCOUNTER → 2019-10-26 | Outpatient (CLI) | payer BC ==
[~2019-10-26] MED LIST changes: +LISI10TA22 PO; -LISI10TA4 PO
== END ==
LOC: M LABSMTC 13:01
PROVIDERS: ATTEND Family Medicine
DX: Z11.59 Encounter for screening for other viral diseases (principal)
CPT/HCPCS: C9803; U0002

== ENCOUNTER → 2019-10-27 | Outpatient (REF) | payer BC ==
[~2019-10-27] MED LIST changes: -LISI10TA22 PO; +LISI10TA4 PO
== END ==
LOC: M LAB REF 17:11
PROVIDERS: ATTEND Physician Assistant
DX: J02.9 Acute pharyngitis, unspecified (principal)

== ENCOUNTER → 2019-12-31 | Outpatient (REF) | payer BC ==
[2019-12-31 13:21] LABS: HEMATOCRIT 40.1 % (36.0-47.0); MEAN CORPUSCULAR HEMOGLOBIN 29.7 pg (27.0-33.0); MEAN CORPUSCULAR HGB CONC 32.4 g/dl (32.0-36.5); MEAN CORPUSCULAR VOLUME 91.6 fl (80.0-96.0); RED BLOOD COUNT 4.38 10^6/uL (4.00-5.40); WHITE BLOOD COUNT 7.8 10^3/uL (4.0-10.0)
[2019-12-31 13:22] LABS: BASO # 0.1 10^3/uL (0.0-0.2); BASO % 0.9 % (0.0-1.0); EOS # 0.2 10^3/uL (0.0-0.5); EOS % 2.1 % (0.0-3.0); LYMPH # 1.7 10^3/uL (1.5-5.0); LYMPH % 21.8 % (24.0-44.0); MONO # 0.8 10^3/uL (0.0-0.8); MONO % 10.7 % (0.0-5.0); NEUTROPHILS % 64.1 % (36.0-66.0); PLATELET COUNT, AUTOMATED 324 10^3/uL (150-450)
[2019-12-31 13:37] LABS: ALBUMIN 3.4 GM/DL (3.2-5.2); ALT/SGPT 20 U/L (12-78); BILIRUBIN,TOTAL 0.5 MG/DL (0.2-1.0); BLOOD UREA NITROGEN 20 MG/DL (7-18); CALCIUM LEVEL 8.7 MG/DL (8.5-10.1); CARBON DIOXIDE LEVEL 29 MEQ/L (21-32); CHLORIDE LEVEL 104 MEQ/L (98-107); CREATININE FOR GFR 0.82 MG/DL (0.55-1.30); FREE T4 0.86 NG/DL (0.76-1.46); GLOMERULAR FILTRATION RATE > 60.0 (>58); GLUCOSE, FASTING 233 MG/DL (70-100); HEMOGLOBIN A1c 7.1 %; POTASSIUM SERUM 4.9 MEQ/L (3.5-5.1); SODIUM LEVEL 136 MEQ/L (136-145); TOTAL 25(OH) VITAMIN D 36.5 NG/ML (30.0-100.0); TOTAL PROTEIN 7.1 GM/DL (6.4-8.2)
== END ==
LOC: M LABDRWAD 12:48
PROVIDERS: ATTEND Physician Assistant
DX: E03.9 Hypothyroidism, unspecified (principal); E10.65 Type 1 diabetes mellitus with hyperglycemia

== ENCOUNTER → 2020-05-18 | Outpatient (CLI) | payer SELFPAY | LOC: M LABSMTC 14:47 | PROVIDERS: ATTEND Pediatrics | DX: Z20.828 Contact with and (suspected) exposure to other viral communicable diseases (principal) ==

== ENCOUNTER → 2020-11-06 | Outpatient (CLI) | payer BC ==
[~2020-11-06] MED LIST changes: +LISI10TA22 PO; -LISI10TA4 PO
--- NOTE | 2020-11-06 15:21 | REPMRS ---
Patient History The patient states she has not had a clinical breast exam in over a year. No known family history of cancer. Patient states no breast complaints. Patient has signed the MRS history sheet Digital Woman Screen Mammo: November 06, 2020 - Exam #: [id number] Bilateral CC and MLO view(s) were taken. Technologist: Stella Mack, Technologist Prior study comparison: December 04, 2018, bilateral digital woman screen mammo performed at [facility]. December 03, 2017, bilateral digital woman screen mammo performed at [facility]. July 06, 2014, digital woman screen mammo performed at [facility]. FINDINGS: There are scattered fibroglandular densities. The Volpara volumetric breast density category is:B. There has been no change in the appearance of the mammogram from the prior studies. There is a mild amount of scattered fibroglandular density which is fairly symmetric. There is no interval development of dominant mass, architectural distortion, or grouped microcalcification suggestive of malignancy. 3-D tomosynthesis shows no additional findings. Assessment: BI-RADS/ACR category 1 mammogram. Negative Mammogram. Recommendation Routine screening mammogram of both breasts in 1 year (for women over age 40). This patient's [facility] Lifetime Breast Cancer Risk is estimated at 9.9 %. This mammogram was interpreted with the aid of an FDA-approved computer-aided dectection system. Electronically Signed By: Doug Romero MD 11/06/20 [id number]
== END ==
LOC: M WHC 14:28
PROVIDERS: ATTEND Physician Assistant
DX: Z12.31 Encounter for screening mammogram for malignant neoplasm of breast (principal)

== ENCOUNTER → 2021-01-09 | Outpatient (REF) | payer BC ==
[2021-01-09 12:40] LABS: BASO % 0.7 % (0.0-1.0); EOS # 0.2 10^3/uL (0.0-0.5); EOS % 2.6 % (0.0-3.0); HEMATOCRIT 38.3 % (36.0-47.0); HEMOGLOBIN 12.2 g/dl (12.0-15.5); LYMPH # 1.5 10^3/uL (1.5-5.0); LYMPH % 25.5 % (24.0-44.0); MEAN CORPUSCULAR HEMOGLOBIN 28.6 pg (27.0-33.0); MEAN CORPUSCULAR HGB CONC 31.9 g/dl (32.0-36.5); MEAN CORPUSCULAR VOLUME 89.9 fl (80.0-96.0); MONO # 0.7 10^3/uL (0.0-0.8); MONO % 11.3 % (2.0-8.0); NEUTROPHILS # 3.4 10^3/uL (1.5-8.5); NEUTROPHILS % 59.4 % (36.0-66.0); PLATELET COUNT, AUTOMATED 253 10^3/uL (150-450); RED BLOOD COUNT 4.26 10^6/uL (4.00-5.40); WHITE BLOOD COUNT 5.7 10^3/uL (4.0-10.0)
[2021-01-09 12:57] LABS: ALBUMIN 3.2 GM/DL (3.2-5.2); ALT/SGPT 25 U/L (12-78); BILIRUBIN,TOTAL 0.5 MG/DL (0.2-1.0); BLOOD UREA NITROGEN 22 MG/DL (7-18); CALCIUM LEVEL 8.8 MG/DL (8.5-10.1); CARBON DIOXIDE LEVEL 28 MEQ/L (21-32); CHLORIDE LEVEL 105 MEQ/L (98-107); CHOLESTEROL LEVEL 139 MG/DL (<200); CHOLESTEROL RISK RATIO 1.957 (<5); CREATININE FOR GFR 0.77 MG/DL (0.55-1.30); GLOMERULAR FILTRATION RATE > 60.0 (>51); GLUCOSE, FASTING 337 MG/DL (70-100); HDL CHOLESTEROL 71 MG/DL (>40); LDL CHOLESTEROL 59 MG/DL (<100); NON-HDL-C 68 MG/DL; POTASSIUM SERUM 4.8 MEQ/L (3.5-5.1); SODIUM LEVEL 138 MEQ/L (136-145); THYROID STIMULATING HORMONE 0.017 uIU/ML (0.358-3.740); TOTAL PROTEIN 6.7 GM/DL (6.4-8.2); TRIGLYCERIDES LEVEL 44 MG/DL (<150)
[2021-01-09 15:21] LABS: HEMOGLOBIN A1c 8.4 %
== END ==
LOC: M LABDRWAD 12:12
PROVIDERS: ATTEND Physician Assistant
DX: E10.65 Type 1 diabetes mellitus with hyperglycemia (principal)

== ENCOUNTER → 2021-01-19 | Outpatient (CLI) | payer BC | LOC: M LABSMTC 09:36 | PROVIDERS: ATTEND Anesthesiology | DX: Z01.812 Encounter for preprocedural laboratory examination (principal); Z20.822 Contact with and (suspected) exposure to COVID-19 ==

== ENCOUNTER 2021-01-24 07:50 | Day surgery (SDC) | payer BC ==
[~2021-01-24] VITALS: Ht 175.3 cm; Wt 76.7 kg
[~2021-01-24 07:50] MED LIST changes: +NS 1,000 ML IV ONE
[2021-01-24] MEDS ORDERED: propofoL 200 MG/20 ML VIAL As Ordered ONE (08:21)
[2021-01-24] MEDS ORDERED: LIDOCAINE 2% 100MG/5ML SDV (FOR ANES.) As Ordered ONE (08:21)
--- NOTE | 2021-01-24 10:10 | ROOR ---
Patient Name: Soheila Styles Procedure Date: 01/24/2021 9:27 AM Date of : 1970 Age: 50 Room: [facility] Gender: Female Note Status: Finalized Procedure: Colonoscopy Indications: Screening for colorectal malignant neoplasm Providers: Jay Jay Benedict MD Referring MD: Elise DIETZ DO Requesting Provider: Medicines: Monitored Anesthesia Care Complications: No immediate complications. Procedure: Pre-Anesthesia Assessment: - Prior to the procedure, a History and Physical was performed, and patient medications and allergies were reviewed. The patient is competent. The risks and benefits of the procedure and the sedation options and risks were discussed with the patient. All questions were answered and informed consent was obtained. Patient identification and proposed procedure were verified by the physician, the nurse and the anesthesiologist in the endoscopy suite. Mental Status Examination: alert and oriented. Airway Examination: normal oropharyngeal airway and neck mobility. Respiratory Examination: clear to auscultation. CV Examination: normal. Prophylactic Antibiotics: The patient does not require prophylactic antibiotics. Prior Anticoagulants: The patient has taken no previous anticoagulant or antiplatelet agents. ASA Grade Assessment: II - A patient with mild systemic disease. After reviewing the risks and benefits, the patient was deemed in satisfactory condition to undergo the procedure. The anesthesia plan was to use monitored anesthesia care (MAC). Immediately prior to administration of medications, the patient was re-assessed for adequacy to receive sedatives. The heart rate, respiratory rate, oxygen saturations, blood pressure, adequacy of pulmonary ventilation, and response to care were monitored throughout the procedure. The physical status of the patient was re-assessed after the procedure. The Colonoscope was introduced through the anus and advanced to the terminal ileum, with identification of the appendiceal orifice and IC valve. The colonoscopy was somewhat difficult due to a tortuous colon. The patient tolerated the procedure well. The quality of the bowel preparation was adequate to identify polyps. Findings: The perianal and digital rectal examinations were normal. Two flat polyps were found in the sigmoid colon. The polyps were diminutive in size. These polyps were removed with a jumbo cold forceps. Resection and retrieval were complete. Estimated blood loss was minimal. Internal hemorrhoids were found during retroflexion. The hemorrhoids were small. Impression: - Two diminutive polyps in the sigmoid colon, removed with a jumbo cold forceps. Resected and retrieved. - Internal hemorrhoids. Recommendation: - Repeat colonoscopy in 5 years for surveillance. - Await pathology results. Procedure Code(s): --- Professional --- 97795, Colonoscopy, flexible; with biopsy, single or multiple Diagnosis Code(s): --- Professional --- Z12.11, Encounter for screening for malignant neoplasm of colon K63.5, Polyp of colon K64.8, Other hemorrhoids CPT copyright 2019 [employer]. All rights reserved. The codes documented in this report are preliminary and upon civil engineering manager review may be revised to meet current compliance requirements. Jay Jay Benedict MD Jay Jay Benedict MD 01/24/2021 10:10:30 AM Electronically signed by Jay Jay Benedict MD Number of Addenda: 0 Note Initiated On: 01/24/2021 9:27 AM Estimated Blood Loss: Estimated blood loss was minimal.
[2021-01-24 10:32] VITALS: BP 122/76
== END 2021-01-24 10:34 | disposition home or self-care (01) ==
LOC: M OPP 07:50
PROVIDERS: ATTEND Surgery
DX: Z12.11 Encounter for screening for malignant neoplasm of colon (principal); D12.5 Benign neoplasm of sigmoid colon; K64.8 Other hemorrhoids; E10.9 Type 1 diabetes mellitus without complications; Z96.41 Presence of insulin pump (external) (internal); Z79.899 Other long term (current) drug therapy

== ENCOUNTER → 2021-08-17 | Outpatient (REF) | payer BC ==
[~2021-08-17] MED LIST changes: -NS 1,000 ML IV ONE
[2021-08-17 13:29] LABS: BASO % 0.6 % (0.0-1.0); EOS % 0.2 % (0.0-3.0); HEMATOCRIT 36.4 % (36.0-47.0); LYMPH % 15.1 % (24.0-44.0); MEAN CORPUSCULAR HEMOGLOBIN 29.2 pg (27.0-33.0); MEAN CORPUSCULAR VOLUME 88.6 fl (80.0-96.0); MONO # 0.6 10^3/uL (0.0-0.8); MONO % 8.7 % (2.0-8.0); NEUTROPHILS # 4.7 10^3/uL (1.5-8.5); NEUTROPHILS % 74.9 % (36.0-66.0); PLATELET COUNT, AUTOMATED 275 10^3/uL (150-450); RED BLOOD COUNT 4.11 10^6/uL (4.00-5.40); WHITE BLOOD COUNT 6.3 10^3/uL (4.0-10.0)
[2021-08-17 13:52] LABS: HEMOGLOBIN A1c 10.6 %
[2021-08-17 14:12] LABS: ALBUMIN 3.6 GM/DL (3.2-5.2); ALT/SGPT 28 U/L (12-78); BILIRUBIN,TOTAL 0.5 MG/DL (0.2-1.0); BLOOD UREA NITROGEN 15 MG/DL (7-18); CALCIUM LEVEL 9.1 MG/DL (8.5-10.1); CARBON DIOXIDE LEVEL 28 MEQ/L (21-32); CHLORIDE LEVEL 101 MEQ/L (98-107); FREE T4 1.05 NG/DL (0.76-1.46); GLOMERULAR FILTRATION RATE > 60.0 (>51); GLUCOSE, FASTING 302 MG/DL (70-100); POTASSIUM SERUM 4.5 MEQ/L (3.5-5.1); SODIUM LEVEL 135 MEQ/L (136-145); TOTAL 25(OH) VITAMIN D 30.3 NG/ML (30.0-100.0); TOTAL PROTEIN 7.2 GM/DL (6.4-8.2)
== END ==
LOC: M LABDRWAD 12:49
PROVIDERS: ATTEND Physician Assistant
DX: E03.9 Hypothyroidism, unspecified (principal); E10.65 Type 1 diabetes mellitus with hyperglycemia

== ENCOUNTER → 2021-11-26 | Outpatient (CLI) | payer BC | LOC: M WHC 11:18 | PROVIDERS: ATTEND Physician Assistant | DX: Z12.31 Encounter for screening mammogram for malignant neoplasm of breast (principal) ==

== ENCOUNTER → 2021-12-25 | Outpatient (CLI) | payer BC ==
[2021-12-25 12:41] LABS: BASO # 0.1 10^3/uL (0.0-0.2); BASO % 0.9 % (0.0-1.0); EOS # 0.1 10^3/uL (0.0-0.5); EOS % 2.6 % (0.0-3.0); HEMATOCRIT 33.4 % (36.0-47.0); HEMOGLOBIN 10.9 g/dl (12.0-15.5); LYMPH # 1.5 10^3/uL (1.5-5.0); LYMPH % 28.2 % (24.0-44.0); MEAN CORPUSCULAR HEMOGLOBIN 30.4 pg (27.0-33.0); MEAN CORPUSCULAR HGB CONC 32.6 g/dl (32.0-36.5); MEAN CORPUSCULAR VOLUME 93.3 fl (80.0-96.0); MONO # 0.6 10^3/uL (0.0-0.8); MONO % 10.1 % (2.0-8.0); NEUTROPHILS # 3.1 10^3/uL (1.5-8.5); NEUTROPHILS % 57.8 % (36.0-66.0); PLATELET COUNT, AUTOMATED 282 10^3/uL (150-450); RED BLOOD COUNT 3.58 10^6/uL (4.00-5.40); WHITE BLOOD COUNT 5.4 10^3/uL (4.0-10.0)
[2021-12-25 16:02] LABS: ALBUMIN 3.3 GM/DL (3.2-5.2); ALT/SGPT 20 U/L (12-78); BILIRUBIN,TOTAL 0.7 MG/DL (0.2-1.0); BLOOD UREA NITROGEN 20 MG/DL (7-18); CALCIUM LEVEL 8.7 MG/DL (8.5-10.1); CARBON DIOXIDE LEVEL 28 MEQ/L (21-32); CHLORIDE LEVEL 104 MEQ/L (98-107); GLOMERULAR FILTRATION RATE > 60.0 (>51); GLUCOSE, FASTING 250 MG/DL (70-100); POTASSIUM SERUM 4.7 MEQ/L (3.5-5.1); SODIUM LEVEL 135 MEQ/L (136-145); THYROID STIMULATING HORMONE 0.307 uIU/ML (0.358-3.740); TOTAL PROTEIN 6.8 GM/DL (6.4-8.2)
[2021-12-26 00:08] LABS: HEMOGLOBIN A1c 7.6 %
== END ==
LOC: M ADAMS 08:32
PROVIDERS: ATTEND Physician Assistant
DX: E10.65 Type 1 diabetes mellitus with hyperglycemia (principal); E03.9 Hypothyroidism, unspecified

== ENCOUNTER → 2022-06-24 | Outpatient (CLI) | payer BC ==
[~2022-06-24] MED LIST changes: +BENZ1LOZ2 PO; -SORE15LO PO
[2022-06-24 18:57] LABS: HEMOGLOBIN A1c 9.2 % (4.0-6.0)
[2022-06-24 19:01] LABS: BASO # 0.1 10^3/uL (0.0-0.2); BASO % 0.8 % (0.0-1.0); EOS # 0.2 10^3/uL (0.0-0.5); EOS % 2.6 % (0.0-3.0); HEMATOCRIT 38.7 % (36.0-47.0); HEMOGLOBIN 12.4 g/dl (12.0-15.5); LYMPH # 1.4 10^3/uL (1.5-5.0); LYMPH % 23.1 % (24.0-44.0); MEAN CORPUSCULAR HEMOGLOBIN 29.8 pg (27.0-33.0); MONO # 0.7 10^3/uL (0.0-0.8); MONO % 11.2 % (2.0-8.0); NEUTROPHILS # 3.9 10^3/uL (1.5-8.5); PLATELET COUNT, AUTOMATED 261 10^3/uL (150-450); RED BLOOD COUNT 4.16 10^6/uL (4.00-5.40); WHITE BLOOD COUNT 6.2 10^3/uL (4.0-10.0)
[2022-06-24 19:10] LABS: FREE T4 0.85 NG/DL (0.89-1.76); THYROID STIMULATING HORMONE 4.822 uIU/ML (0.55-4.78)
[2022-06-24 19:12] LABS: ALBUMIN 3.5 G/DL (3.2-5.2); ALKALINE PHOSPHATASE 87 U/L (46-116); ALT/SGPT 22 U/L (7.0-40); AST/SGOT 21 U/L (<34); BILIRUBIN,TOTAL 0.4 MG/DL (0.3-1.2); BLOOD UREA NITROGEN 18 MG/DL (9-23); CALCIUM LEVEL 8.9 MG/DL (8.5-10.1); CARBON DIOXIDE LEVEL 28 MMOL/L (20-31); CHLORIDE LEVEL 101 MMOL/L (98-107); GLOMERULAR FILTRATION RATE > 60.0 (>51); GLUCOSE, FASTING 285 MG/DL (60-100); POTASSIUM SERUM 4.8 MMOL/L (3.5-5.1); SODIUM LEVEL 135 MMOL/L (136-145); TOTAL PROTEIN 6.8 G/DL (5.7-8.2)
[2022-06-24 19:14] LABS: TOTAL 25(OH) VITAMIN D 80.9 NG/ML (20.0-100.0)
== END ==
LOC: M LABDRWAD 10:44
PROVIDERS: ATTEND Physician Assistant
DX: E10.65 Type 1 diabetes mellitus with hyperglycemia (principal); E03.9 Hypothyroidism, unspecified; E55.9 Vitamin D deficiency, unspecified

== ENCOUNTER → 2023-01-28 | Outpatient (CLI) | payer BC | LOC: M WHC 14:06 | PROVIDERS: ATTEND Physician Assistant | DX: Z12.31 Encounter for screening mammogram for malignant neoplasm of breast (principal) ==

== ENCOUNTER → 2023-03-19 | Outpatient (REF) | payer BC | LOC: M LAB REF 17:03 | PROVIDERS: ATTEND Physician Assistant | DX: J06.9 Acute upper respiratory infection, unspecified (principal) ==

== ENCOUNTER → 2023-04-14 | Outpatient (REF) | payer BC ==
[2023-04-14 13:51] LABS: ALBUMIN 3.4 G/DL (3.2-5.2); ALKALINE PHOSPHATASE 79 U/L (46-116); ALT/SGPT 12 U/L (7.0-40); AST/SGOT 13 U/L (<34); BILIRUBIN,TOTAL 0.6 MG/DL (0.3-1.2); BLOOD UREA NITROGEN 23 MG/DL (9-23); CALCIUM LEVEL 9.3 MG/DL (8.5-10.1); CARBON DIOXIDE LEVEL 29 MMOL/L (20-31); CHLORIDE LEVEL 99 MMOL/L (98-107); CHOLESTEROL LEVEL 147 MG/DL (<200); CHOLESTEROL RISK RATIO 2.02 (<5); FREE T4 1.34 NG/DL (0.89-1.76); GLOMERULAR FILTRATION RATE > 60.0 (>51); GLUCOSE, FASTING 330 MG/DL (60-100); HDL CHOLESTEROL 72.7 MG/DL (>40); LDL CHOLESTEROL 60.7 MG/DL (<100); NON-HDL-C 74.3 MG/DL; POTASSIUM SERUM 4.7 MMOL/L (3.5-5.1); SODIUM LEVEL 135 MMOL/L (136-145); TOTAL 25(OH) VITAMIN D 64.6 NG/ML (20.0-100.0); TOTAL PROTEIN 6.7 G/DL (5.7-8.2); TRIGLYCERIDES LEVEL 68 MG/DL (<150)
[2023-04-14 13:53] LABS: BASO % 0.6 % (0.0-1.0); EOS # 0.2 10^3/uL (0.0-0.5); EOS % 2.6 % (0.0-3.0); HEMATOCRIT 37.7 % (36.0-47.0); HEMOGLOBIN 12.2 g/dl (12.0-15.5); LYMPH # 1.6 10^3/uL (1.5-5.0); LYMPH % 23.9 % (24.0-44.0); MEAN CORPUSCULAR HEMOGLOBIN 29.3 pg (27.0-33.0); MEAN CORPUSCULAR HGB CONC 32.4 g/dl (32.0-36.5); MEAN CORPUSCULAR VOLUME 90.4 fl (80.0-96.0); MONO # 0.7 10^3/uL (0.0-0.8); MONO % 10.4 % (2.0-8.0); NEUTROPHILS # 4.1 10^3/uL (1.5-8.5); NEUTROPHILS % 62.2 % (36.0-66.0); PLATELET COUNT, AUTOMATED 269 10^3/uL (150-450); RED BLOOD COUNT 4.17 10^6/uL (4.00-5.40); WHITE BLOOD COUNT 6.6 10^3/uL (4.0-10.0)
[2023-04-14 14:22] LABS: HEMOGLOBIN A1c 7.7 % (4.0-6.0)
== END ==
LOC: M LABDRWAD 12:56
PROVIDERS: ATTEND Physician Assistant
DX: E10.65 Type 1 diabetes mellitus with hyperglycemia (principal); E03.9 Hypothyroidism, unspecified; E78.2 Mixed hyperlipidemia; E55.9 Vitamin D deficiency, unspecified

== ENCOUNTER → 2023-07-18 | Outpatient (REF) | payer BC ==
[~2023-07-18] MED LIST changes: -BENZ1LOZ2 PO; +SORE15LO PO
[2023-07-18 19:35] LABS: THYROID STIMULATING HORMONE 0.022 uIU/ML (0.55-4.78)
[2023-07-18 19:36] LABS: FREE T4 1.42 NG/DL (0.89-1.76)
== END ==
LOC: M LABDRWAD 18:23
PROVIDERS: ATTEND Physician Assistant
DX: E03.9 Hypothyroidism, unspecified (principal)

== ENCOUNTER → 2024-02-11 | Outpatient (CLI) | payer BC | LOC: M WHC 12:05 | PROVIDERS: ATTEND Physician Assistant | DX: Z12.31 Encounter for screening mammogram for malignant neoplasm of breast (principal) ==

== ENCOUNTER → 2024-02-20 | Outpatient (REF) | payer BC ==
[2024-02-20 14:58] LABS: BASO % 0.7 % (0.0-1.0); EOS # 0.1 10^3/uL (0.0-0.5); EOS % 2.3 % (0.0-3.0); HEMATOCRIT 37.7 % (36.0-47.0); HEMOGLOBIN 12.3 g/dl (12.0-15.5); LYMPH # 1.4 10^3/uL (1.5-5.0); LYMPH % 23.1 % (24.0-44.0); MEAN CORPUSCULAR HEMOGLOBIN 29.5 pg (27.0-33.0); MEAN CORPUSCULAR HGB CONC 32.6 g/dl (32.0-36.5); MEAN CORPUSCULAR VOLUME 90.4 fl (80.0-96.0); MONO # 0.8 10^3/uL (0.0-0.8); MONO % 12.5 % (2.0-8.0); NEUTROPHILS # 3.7 10^3/uL (1.5-8.5); NEUTROPHILS % 61.1 % (36.0-66.0); PLATELET COUNT, AUTOMATED 263 10^3/uL (150-450); RED BLOOD COUNT 4.17 10^6/uL (4.00-5.40)
[2024-02-20 15:24] LABS: ALBUMIN 3.6 G/DL (3.2-5.2); ALKALINE PHOSPHATASE 85 U/L (46-116); ALT/SGPT 18 U/L (7.0-40); AST/SGOT 18 U/L (<34); BILIRUBIN,TOTAL 0.9 MG/DL (0.3-1.2); BLOOD UREA NITROGEN 21 MG/DL (9-23); CALCIUM LEVEL 9.1 MG/DL (8.5-10.1); CARBON DIOXIDE LEVEL 30 MMOL/L (20-31); CHLORIDE LEVEL 103 MMOL/L (98-107); CHOLESTEROL LEVEL 139 MG/DL (<200); CHOLESTEROL RISK RATIO 1.97 (<5); CREATININE FOR GFR 0.78 MG/DL (0.55-1.30); GLOMERULAR FILTRATION RATE > 60.0 (>51); GLUCOSE, FASTING 192 MG/DL (60-100); HDL CHOLESTEROL 70.4 MG/DL (>40); LDL CHOLESTEROL 59.4 MG/DL (<100); NON-HDL-C 68.6 MG/DL; POTASSIUM SERUM 4.9 MMOL/L (3.5-5.1); SODIUM LEVEL 135 MMOL/L (136-145); TRIGLYCERIDES LEVEL 46 MG/DL (<150)
[2024-02-20 15:26] LABS: THYROID STIMULATING HORMONE 0.013 uIU/ML (0.55-4.78); TOTAL 25(OH) VITAMIN D 119.9 NG/ML (20.0-100.0)
[2024-02-20 15:35] LABS: HEMOGLOBIN A1c 7.9 % (4.0-6.0)
== END ==
LOC: M LABDRWAD 12:28
PROVIDERS: ATTEND Physician Assistant
DX: E10.65 Type 1 diabetes mellitus with hyperglycemia (principal); E03.9 Hypothyroidism, unspecified; E78.2 Mixed hyperlipidemia; E55.9 Vitamin D deficiency, unspecified

== ENCOUNTER 2024-04-23 08:58 | Day surgery (SDC) | payer BC ==
[~2024-04-23] VITALS: Ht 165.1 cm; Wt 66.7 kg
[2024-04-23] MEDS: ONDANSETRON 4MG 2ML VIAL IV STA (09:20)
[2024-04-23] MEDS ORDERED: propofoL 200 MG/20 ML VIAL As Ordered ONE (09:40)
[2024-04-23] MEDS ORDERED: LIDOCAINE 2% 100MG/5ML SDV (FOR ANES.) As Ordered ONE (09:41)
[2024-04-23 09:59] VITALS: TEMP 97.6
[2024-04-23 10:28] VITALS: BP 111/54; O2SAT 100
== END 2024-04-23 10:32 | disposition home or self-care (01) ==
LOC: M OPP 08:58
PROVIDERS: ATTEND Surgery
DX: Z12.11 Encounter for screening for malignant neoplasm of colon (principal); Z86.0100 Personal history of colon polyps, unspecified; I10 Essential (primary) hypertension; E78.00 Pure hypercholesterolemia, unspecified; E10.9 Type 1 diabetes mellitus without complications; E03.9 Hypothyroidism, unspecified; Z79.4 Long term (current) use of insulin; Z79.899 Other long term (current) drug therapy; Z79.890 Hormone replacement therapy; Z96.41 Presence of insulin pump (external) (internal)
CPT/HCPCS: 45378; J2405

== ENCOUNTER → 2024-06-01 | Outpatient (REF) | payer BC ==
[2024-06-01 13:51] LABS: BASO # 0.1 10^3/uL (0.0-0.2); EOS # 0.1 10^3/uL (0.0-0.5); EOS % 2.5 % (0.0-3.0); HEMATOCRIT 34.5 % (36.0-47.0); LYMPH # 1.1 10^3/uL (1.5-5.0); LYMPH % 21.2 % (24.0-44.0); MEAN CORPUSCULAR HEMOGLOBIN 28.9 pg (27.0-33.0); MEAN CORPUSCULAR HGB CONC 31.9 g/dl (32.0-36.5); MEAN CORPUSCULAR VOLUME 90.6 fl (80.0-96.0); MONO # 0.6 10^3/uL (0.0-0.8); MONO % 11.8 % (2.0-8.0); NEUTROPHILS # 3.2 10^3/uL (1.5-8.5); NEUTROPHILS % 63.1 % (36.0-66.0); PLATELET COUNT, AUTOMATED 280 10^3/uL (150-450); RED BLOOD COUNT 3.81 10^6/uL (4.00-5.40); WHITE BLOOD COUNT 5.1 10^3/uL (4.0-10.0)
[2024-06-01 14:11] LABS: THYROID STIMULATING HORMONE 0.083 uIU/ML (0.55-4.78); TOTAL 25(OH) VITAMIN D 49.1 NG/ML (20.0-100.0)
[2024-06-01 14:12] LABS: FREE T4 1.22 NG/DL (0.89-1.76); HEMOGLOBIN A1c 7.3 % (4.0-6.0)
[2024-06-01 14:15] LABS: ALBUMIN 3.2 G/DL (3.2-5.2); ALKALINE PHOSPHATASE 76 U/L (35-104); ALT/SGPT 15 U/L (7.0-40); AST/SGOT 16 U/L (<34); BILIRUBIN,TOTAL 0.6 MG/DL (0.3-1.2); BLOOD UREA NITROGEN 24 MG/DL (9-23); CALCIUM LEVEL 9.1 MG/DL (8.5-10.1); CARBON DIOXIDE LEVEL 28 MMOL/L (20-31); CHLORIDE LEVEL 103 MMOL/L (98-107); CHOLESTEROL LEVEL 142 MG/DL (<200); CHOLESTEROL RISK RATIO 2.01 (<5); GLOMERULAR FILTRATION RATE > 60.0 (>51); GLUCOSE, FASTING 251 MG/DL (60-100); HDL CHOLESTEROL 70.4 MG/DL (>40); LDL CHOLESTEROL 61.2 MG/DL (<100); NON-HDL-C 71.6 MG/DL; POTASSIUM SERUM 4.6 MMOL/L (3.5-5.1); SODIUM LEVEL 138 MMOL/L (136-145); TOTAL PROTEIN 6.6 G/DL (5.7-8.2); TRIGLYCERIDES LEVEL 52 MG/DL (<150)
[2024-06-01 14:20] LABS: CREATININE, URINE 121.5 MG/DL; MALB URINE SIEMENS < 3.0 MG/L
== END ==
LOC: M LABDRWAD 12:33
PROVIDERS: ATTEND Physician Assistant
DX: E10.65 Type 1 diabetes mellitus with hyperglycemia (principal); E03.9 Hypothyroidism, unspecified; E78.2 Mixed hyperlipidemia; E55.9 Vitamin D deficiency, unspecified

== ENCOUNTER 2024-07-23 06:55 | Day surgery (SDC) | payer BC ==
[~2024-07-23] VITALS: Ht 165.1 cm; Wt 64.3 kg
[~2024-07-23 06:55] MED LIST changes: +ERGO500029 PO; +EUTH137T PO; +SEMA2PEN SC
[2024-07-23] MEDS ORDERED: propofoL 200 MG/20 ML VIAL As Ordered ONE (07:51)
[2024-07-23] MEDS ORDERED: LIDOCAINE 2% 100MG/5ML SDV (FOR ANES.) As Ordered ONE (07:51)
[2024-07-23] MEDS ORDERED: ePHEDrine SULFATE 25 MG/5 ML(5MG/ML) SYRINGE As Ordered ONE (08:09)
[2024-07-23 08:10] VITALS: TEMP 97
[2024-07-23 08:26] VITALS: BP 121/61; O2SAT 100
== END 2024-07-23 08:38 | disposition home or self-care (01) ==
LOC: M OPP 06:55
PROVIDERS: ATTEND Surgery
DX: D12.6 Benign neoplasm of colon, unspecified (principal); Z86.0100 Personal history of colon polyps, unspecified; Z79.4 Long term (current) use of insulin; Z79.85 Long-term (current) use of injectable non-insulin antidiabetic drugs; Z79.899 Other long term (current) drug therapy

== ENCOUNTER 2024-07-27 08:39 | Inpatient (IN) | payer BC ==
[2024-07-27] VITALS (8 sets, daily range): BP systolic 121–135; BP diastolic 54–60; TEMP 99.6–100.3; O2SAT 98–100
[~2024-07-27] VITALS: Ht 162.6 cm; Wt 56.5 kg
[2024-07-27] MEDS: ONDANSETRON 4MG ORAL DISINTEGRATING TAB PO ONE (09:24)
[2024-07-27 11:02] LABS: BASO % 0.1 % (0.0-1.0); HEMOGLOBIN 12.7 g/dl (12.0-15.5); LYMPH # 0.6 10^3/uL (1.5-5.0); LYMPH % 3.8 % (24.0-44.0); MEAN CORPUSCULAR HEMOGLOBIN 28.8 pg (27.0-33.0); MEAN CORPUSCULAR HGB CONC 32.6 g/dl (32.0-36.5); MEAN CORPUSCULAR VOLUME 88.4 fl (80.0-96.0); MONO # 1.1 10^3/uL (0.0-0.8); MONO % 6.7 % (2.0-8.0); NEUTROPHILS # 14.6 10^3/uL (1.5-8.5); NEUTROPHILS % 88.7 % (36.0-66.0); PLATELET COUNT, AUTOMATED 336 10^3/uL (150-450); RED BLOOD COUNT 4.41 10^6/uL (4.00-5.40); VENOUS BASE EXCESS -6.5 (-2.0-2.0); VENOUS HCO3 19.2 MMOL/L (23.0-27.0); VENOUS O2 SATURATION 71.6 % (60.0-80.0); VENOUS PARTIAL PRESSURE CO2 39.2 mmHg (38.0-50.0); VENOUS PARTIAL PRESSURE O2 38.2 mmHg (30.0-50.0); VENOUS PH 7.309 UNITS (7.330-7.430); VENOUS STANDARD HCO3 18.7 MMOL/L; VENOUS TOTAL CO2 20.5 MMOL/L (24.0-28.0); WHITE BLOOD COUNT 16.5 10^3/uL (4.0-10.0)
[2024-07-27] MEDS: NS (Normal Saline) 0.9% 1,000 ML IV ONE ×3 (11:10→15:00)
[2024-07-27] MEDS ORDERED: ONDANSETRON 4MG 2ML VIAL As Ordered ONE (11:39)
[2024-07-27] MEDS: ONDANSETRON 4MG 2ML VIAL IV ONE (11:42)
[2024-07-27 12:03] LABS: ALBUMIN 3.9 G/DL (3.2-5.2); BILIRUBIN,DIRECT 0.2 MG/DL (<0.4); BILIRUBIN,TOTAL 0.6 MG/DL (0.3-1.2); CALCIUM LEVEL 9.8 MG/DL (8.5-10.1); CREATININE FOR GFR 1.26 MG/DL (0.55-1.30); GLOMERULAR FILTRATION RATE 47.1 (>51); MAGNESIUM LEVEL 2.1 MG/DL (1.8-2.4); PHOSPHORUS LEVEL 3.9 MG/DL (2.5-4.9); POTASSIUM SERUM 4.6 MMOL/L (3.5-5.1); TOTAL PROTEIN 8.1 G/DL (5.7-8.2)
[2024-07-27] MEDS: HumuLIN R (REGULAR) INSULIN (NovoLIN R) **100U/ML** PER UNIT IV ONE (12:16)
[2024-07-27] MEDS: METOCLOPRAMIDE INJ 10MG/2ML VIAL IV ONE (13:03)
[2024-07-27] MEDS ORDERED: HOME MED LIST COMPLETE! XX SCH (13:15)
[2024-07-27] MEDS: LEVEMIR (INSULIN DETEMIR) 1 UNITS/0.01ML SC SCH ×2 (14:11→20:31)
[2024-07-27] MEDS ORDERED: GLUCOSE 4 GM CHEW PO PRN (14:15)
[2024-07-27] MEDS ORDERED: DEXTROSE 50% 50ML SYRINGE IV PRN (14:15)
[2024-07-27] MEDS ORDERED: GLUCAGON INJ 1MG VIAL SC PRN (14:15)
[2024-07-27] MEDS ORDERED: KCL 20MEQ in NS 1000ML 1,000 ML IV SCH (14:20)
[2024-07-27] MEDS: INSULIN LISPRO (NovoLOG) PER UNIT SC SCH ×2 (14:41→18:39)
[2024-07-27 14:50] LABS: KETONE, URINE AUTO RFX 1+ mg/dL (NEGATIVE); NITRITE, URINE AUTO RFX NEGATIVE (NEGATIVE); RBC, URINE AUTO RFX 4 /HPF (0-3); SQUAM EPITHELIAL CELL UR AURFX 4 /HPF (0-6); WBC, URINE AUTO RFX 7 /HPF (0-3)
[2024-07-27 14:51] LABS: LEUKOCYTE ESTERASE UR AUTO RFX TRACE (NEGATIVE)
[2024-07-27] MEDS ORDERED: PIPERACILLIN/TAZOBACTAM SOD 4.5 GM in DEXTROSE 5% (D5W) ADV/MINI-BAG 50 ML IV SCH (15:00)
[2024-07-27 15:17] LABS: VENOUS HCO3 19.2 MMOL/L (23.0-27.0); VENOUS O2 SATURATION 80.1 % (60.0-80.0); VENOUS PARTIAL PRESSURE CO2 40.9 mmHg (38.0-50.0); VENOUS PARTIAL PRESSURE O2 48.1 mmHg (30.0-50.0); VENOUS PH 7.289 UNITS (7.330-7.430); VENOUS STANDARD HCO3 18.5 MMOL/L; VENOUS TOTAL CO2 20.4 MMOL/L (24.0-28.0)
[2024-07-27 15:19] LABS: HEMATOCRIT 32.2 % (36.0-47.0); MEAN CORPUSCULAR HEMOGLOBIN 29.1 pg (27.0-33.0); MEAN CORPUSCULAR HGB CONC 32.3 g/dl (32.0-36.5); MEAN CORPUSCULAR VOLUME 89.9 fl (80.0-96.0); PLATELET COUNT, AUTOMATED 249 10^3/uL (150-450); RED BLOOD COUNT 3.58 10^6/uL (4.00-5.40); WHITE BLOOD COUNT 21.3 10^3/uL (4.0-10.0)
[2024-07-27 15:25] LABS: HEMOGLOBIN 10.4 g/dl (12.0-15.5)
[2024-07-27 16:00] LABS: CALCIUM LEVEL 8.3 MG/DL (8.5-10.1); CREATININE FOR GFR 1.19 MG/DL (0.55-1.30); GLOMERULAR FILTRATION RATE 50.3 (>51); POTASSIUM SERUM 4.5 MMOL/L (3.5-5.1)
[2024-07-27] MEDS: ONDANSETRON 4MG 2ML VIAL IV PRN (16:38)
[2024-07-27] MEDS: LEVEMIR (INSULIN DETEMIR) 1 UNITS/0.01ML SC ONE (16:38)
[2024-07-27] MEDS: PIPERACILLIN/TAZOBACTAM SOD 3.375 GM in DEXTROSE 5% (D5W) ADV/MINI-BAG 50 ML IV SCH (16:39)
[2024-07-27] MEDS: NS (Normal Saline) 0.9% 1,000 ML IV SCH (16:39)
[2024-07-27 18:25] LABS: CREATININE FOR GFR 1.03 MG/DL (0.55-1.30); GLOMERULAR FILTRATION RATE 59.4 (>51); POTASSIUM SERUM 4.1 MMOL/L (3.5-5.1)
[2024-07-27] MEDS: METOCLOPRAMIDE INJ 10MG/2ML VIAL IV PRN (18:39)
[2024-07-27] MEDS: LEVOTHYROXINE 137MCG TABLET (0.137MG) PO SCH (20:30)
[2024-07-27] MEDS: PRAVASTATIN 10 MG TAB PO SCH (20:30)
[2024-07-28] VITALS (14 sets, daily range): BP systolic 138–173; BP diastolic 67–79; TEMP 98.7–99.8; O2SAT 97–100
[2024-07-28 01:08] LABS: CALCIUM LEVEL 8.1 MG/DL (8.5-10.1); CREATININE FOR GFR 1.03 MG/DL (0.55-1.30); GLOMERULAR FILTRATION RATE 59.4 (>51); POTASSIUM SERUM 3.9 MMOL/L (3.5-5.1)
[2024-07-28 06:32] LABS: ALBUMIN 3.2 G/DL (3.2-5.2); ALKALINE PHOSPHATASE 66 U/L (35-104); ALT/SGPT 49 U/L (7.0-40); AST/SGOT 56 U/L (<34); BILIRUBIN,DIRECT 0.2 MG/DL (<0.4); BILIRUBIN,TOTAL 0.5 MG/DL (0.3-1.2); BLOOD UREA NITROGEN 27 MG/DL (9-23); CALCIUM LEVEL 7.9 MG/DL (8.5-10.1); CARBON DIOXIDE LEVEL 20 MMOL/L (20-31); CHLORIDE LEVEL 112 MMOL/L (98-107); CREATININE FOR GFR 0.91 MG/DL (0.55-1.30); GLOMERULAR FILTRATION RATE > 60.0 (>51); GLUCOSE, FASTING 66 MG/DL (60-100); POTASSIUM SERUM 4.1 MMOL/L (3.5-5.1); SODIUM LEVEL 145 MMOL/L (136-145); TOTAL PROTEIN 6.4 G/DL (5.7-8.2)
[2024-07-28] MEDS: HEPARIN SOD (PORCINE) 5000UNITS/ML 1ML VIAL/SYRINGE SQ SCH (07:57)
[2024-07-28 08:09] LABS: HEMOGLOBIN 10.9 g/dl (12.0-15.5); MEAN CORPUSCULAR HEMOGLOBIN 29.1 pg (27.0-33.0); PLATELET COUNT, AUTOMATED 254 10^3/uL (150-450); RED BLOOD COUNT 3.75 10^6/uL (4.00-5.40); WHITE BLOOD COUNT 23.8 10^3/uL (4.0-10.0)
[2024-07-28 10:10] LABS: PROCALCITONIN >50.00 ng/ml
[2024-07-28] MEDS: LEVEMIR (INSULIN DETEMIR) 1 UNITS/0.01ML SC SCH (10:22)
[2024-07-28 12:25] LABS: BLOOD UREA NITROGEN 19 MG/DL (9-23); CALCIUM LEVEL 7.7 MG/DL (8.5-10.1); CARBON DIOXIDE LEVEL 24 MMOL/L (20-31); CHLORIDE LEVEL 110 MMOL/L (98-107); CREATININE FOR GFR 0.83 MG/DL (0.55-1.30); GLOMERULAR FILTRATION RATE > 60.0 (>51); GLUCOSE, FASTING 200 MG/DL (60-100); SODIUM LEVEL 142 MMOL/L (136-145)
[2024-07-28] MEDS: dexAMETHasone 4 MG TAB PO SCH (13:08)
[2024-07-28 18:41] LABS: BLOOD UREA NITROGEN 14 MG/DL (9-23); CALCIUM LEVEL 7.8 MG/DL (8.5-10.1); CARBON DIOXIDE LEVEL 26 MMOL/L (20-31); CHLORIDE LEVEL 101 MMOL/L (98-107); CREATININE FOR GFR 0.68 MG/DL (0.55-1.30); GLOMERULAR FILTRATION RATE > 60.0 (>51); GLUCOSE, FASTING 208 MG/DL (60-100); POTASSIUM SERUM 3.9 MMOL/L (3.5-5.1); SODIUM LEVEL 138 MMOL/L (136-145)
[2024-07-29 00:48] LABS: BLOOD UREA NITROGEN 12 MG/DL (9-23); CALCIUM LEVEL 7.8 MG/DL (8.5-10.1); CARBON DIOXIDE LEVEL 28 MMOL/L (20-31); CHLORIDE LEVEL 98 MMOL/L (98-107); CREATININE FOR GFR 0.69 MG/DL (0.55-1.30); GLOMERULAR FILTRATION RATE > 60.0 (>51); GLUCOSE, FASTING 235 MG/DL (60-100); POTASSIUM SERUM 3.5 MMOL/L (3.5-5.1); SODIUM LEVEL 136 MMOL/L (136-145)
[2024-07-29 03:40] VITALS: BP 146/71; TEMP 98.7; O2SAT 99
[2024-07-29] MEDS: ACETAMINOPHEN 325 MG TAB PO PRN (06:46)
[2024-07-29 07:09] LABS: HEMATOCRIT 35.2 % (36.0-47.0); HEMOGLOBIN 11.8 g/dl (12.0-15.5); MEAN CORPUSCULAR HEMOGLOBIN 28.8 pg (27.0-33.0); MEAN CORPUSCULAR HGB CONC 33.5 g/dl (32.0-36.5); MEAN CORPUSCULAR VOLUME 85.9 fl (80.0-96.0); PLATELET COUNT, AUTOMATED 275 10^3/uL (150-450); WHITE BLOOD COUNT 17.5 10^3/uL (4.0-10.0)
[2024-07-29 07:43] LABS: BLOOD UREA NITROGEN 13 MG/DL (9-23); CALCIUM LEVEL 7.9 MG/DL (8.5-10.1); CARBON DIOXIDE LEVEL 28 MMOL/L (20-31); CHLORIDE LEVEL 96 MMOL/L (98-107); CREATININE FOR GFR 0.67 MG/DL (0.55-1.30); GLOMERULAR FILTRATION RATE > 60.0 (>51); GLUCOSE, FASTING 246 MG/DL (60-100); POTASSIUM SERUM 3.7 MMOL/L (3.5-5.1); SODIUM LEVEL 136 MMOL/L (136-145)
[2024-07-29 07:47] VITALS: BP 131/74; TEMP 98.9; O2SAT 99
[2024-07-29 07:55] LABS: PROCALCITONIN 34.93 ng/ml
[2024-07-29 08:03] LABS: HEPATITIS B SURFACE ANTIGEN NEGATIVE (NEGATIVE)
[2024-07-29 08:24] LABS: HEPATITIS B CORE ANTIBODY IGM NEGATIVE (NEGATIVE); HEPATITIS C VIRUS ABY INDEX 0.12 INDEX (<0.8)
[2024-07-29 12:42] VITALS: BP 168/84; TEMP 98.6; O2SAT 99
[2024-07-29 12:46] LABS: BLOOD UREA NITROGEN 14 MG/DL (9-23); CALCIUM LEVEL 8.4 MG/DL (8.5-10.1); CARBON DIOXIDE LEVEL 28 MMOL/L (20-31); CHLORIDE LEVEL 95 MMOL/L (98-107); CREATININE FOR GFR 0.67 MG/DL (0.55-1.30); GLOMERULAR FILTRATION RATE > 60.0 (>51); GLUCOSE, FASTING 222 MG/DL (60-100); POTASSIUM SERUM 3.8 MMOL/L (3.5-5.1); SODIUM LEVEL 135 MMOL/L (136-145)
[2024-07-29 16:00] VITALS: BP 164/81; TEMP 98.4; O2SAT 99
[2024-07-29] MEDS: INSULIN LISPRO (NovoLOG) PER UNIT SC SCH (18:10)
[2024-07-29 19:41] VITALS: BP 156/77; TEMP 99.8; O2SAT 99
[2024-07-29 23:35] VITALS: BP 162/78; TEMP 99.7; O2SAT 98
[2024-07-30] VITALS (8 sets, daily range): BP systolic 144–195; BP diastolic 69–94; TEMP 97.4–98.9; O2SAT 97–99
[2024-07-30 04:59] LABS: HEMATOCRIT 40.2 % (36.0-47.0); HEMOGLOBIN 13.7 g/dl (12.0-15.5); MEAN CORPUSCULAR HEMOGLOBIN 28.4 pg (27.0-33.0); MEAN CORPUSCULAR HGB CONC 34.1 g/dl (32.0-36.5); MEAN CORPUSCULAR VOLUME 83.4 fl (80.0-96.0); PLATELET COUNT, AUTOMATED 322 10^3/uL (150-450); RED BLOOD COUNT 4.82 10^6/uL (4.00-5.40); WHITE BLOOD COUNT 13.5 10^3/uL (4.0-10.0)
[2024-07-30] MEDS: hydrALAZINE 20MG/ML 1ML VIAL IV PRN (05:09)
[2024-07-30 05:27] LABS: PROCALCITONIN 20.19 ng/ml
[2024-07-30 05:31] LABS: ALBUMIN 3.3 G/DL (3.2-5.2); ALKALINE PHOSPHATASE 85 U/L (35-104); ALT/SGPT 68 U/L (7.0-40); AST/SGOT 61 U/L (<34); BILIRUBIN,TOTAL 0.8 MG/DL (0.3-1.2); BLOOD UREA NITROGEN 19 MG/DL (9-23); CARBON DIOXIDE LEVEL 27 MMOL/L (20-31); CHLORIDE LEVEL 95 MMOL/L (98-107); CREATININE FOR GFR 0.76 MG/DL (0.55-1.30); GLOMERULAR FILTRATION RATE > 60.0 (>51); GLUCOSE, FASTING 202 MG/DL (60-100); POTASSIUM SERUM 3.7 MMOL/L (3.5-5.1); SODIUM LEVEL 135 MMOL/L (136-145); TOTAL PROTEIN 7.9 G/DL (5.7-8.2)
[2024-07-30 17:38] LABS: ACETONE/KETONE 1.24 MMOL/L (0.02-0.27)
[2024-07-30] MEDS: CIPROFLOXACIN HC OTIC SUSPENSION AS SCH (23:45)
[2024-07-31 04:25] VITALS: BP 117/65; TEMP 97.9; O2SAT 98
[2024-07-31 06:30] LABS: HEMATOCRIT 38.7 % (36.0-47.0); HEMOGLOBIN 13.3 g/dl (12.0-15.5); MEAN CORPUSCULAR HEMOGLOBIN 28.7 pg (27.0-33.0); MEAN CORPUSCULAR HGB CONC 34.4 g/dl (32.0-36.5); MEAN CORPUSCULAR VOLUME 83.6 fl (80.0-96.0); PLATELET COUNT, AUTOMATED 288 10^3/uL (150-450); RED BLOOD COUNT 4.63 10^6/uL (4.00-5.40); WHITE BLOOD COUNT 8.2 10^3/uL (4.0-10.0)
[2024-07-31 07:04] LABS: ALBUMIN 2.9 G/DL (3.2-5.2); ALKALINE PHOSPHATASE 73 U/L (35-104); ALT/SGPT 65 U/L (7.0-40); AST/SGOT 45 U/L (<34); BILIRUBIN,TOTAL 0.6 MG/DL (0.3-1.2); BLOOD UREA NITROGEN 24 MG/DL (9-23); CALCIUM LEVEL 8.7 MG/DL (8.5-10.1); CARBON DIOXIDE LEVEL 31 MMOL/L (20-31); CHLORIDE LEVEL 95 MMOL/L (98-107); GLOMERULAR FILTRATION RATE > 60.0 (>51); GLUCOSE, FASTING 111 MG/DL (60-100); POTASSIUM SERUM 3.3 MMOL/L (3.5-5.1); SODIUM LEVEL 137 MMOL/L (136-145)
[2024-07-31 07:36] VITALS: BP 153/76; TEMP 97.4; O2SAT 98
[2024-07-31 11:34] VITALS: BP 164/74; TEMP 97.6; O2SAT 96
[2024-07-31] MEDS: POTASSIUM CHLORIDE 10MEQ SR TABLET PO ONE (11:46)
[2024-07-31 16:00] VITALS: BP 164/77; TEMP 98; O2SAT 96
[2024-07-31] MEDS: METOPROLOL SUCC *XL* 25MG TAB (TopROL *XL*) PO SCH (18:15)
[2024-07-31 19:47] VITALS: BP 143/75; TEMP 98.3; O2SAT 99
[2024-07-31 20:21] VITALS: BP 143/75
[2024-07-31] MEDS: LEVEMIR (INSULIN DETEMIR) 1 UNITS/0.01ML SC SCH (20:21)
[2024-08-01 00:17] VITALS: BP 98/55; TEMP 98; O2SAT 99
[2024-08-01 03:03] VITALS: BP 104/58; TEMP 98.5; O2SAT 97
[2024-08-01 07:33] LABS: HEMATOCRIT 36.2 % (36.0-47.0); HEMOGLOBIN 12.4 g/dl (12.0-15.5); MEAN CORPUSCULAR HEMOGLOBIN 29.2 pg (27.0-33.0); MEAN CORPUSCULAR HGB CONC 34.3 g/dl (32.0-36.5); MEAN CORPUSCULAR VOLUME 85.4 fl (80.0-96.0); PLATELET COUNT, AUTOMATED 292 10^3/uL (150-450); RED BLOOD COUNT 4.24 10^6/uL (4.00-5.40); WHITE BLOOD COUNT 10.3 10^3/uL (4.0-10.0)
[2024-08-01 07:51] VITALS: BP 109/58; TEMP 98.6; O2SAT 99
[2024-08-01 07:59] LABS: BLOOD UREA NITROGEN 17 MG/DL (9-23); CALCIUM LEVEL 8.2 MG/DL (8.5-10.1); CARBON DIOXIDE LEVEL 28 MMOL/L (20-31); CHLORIDE LEVEL 98 MMOL/L (98-107); CREATININE FOR GFR 0.79 MG/DL (0.55-1.30); GLOMERULAR FILTRATION RATE > 60.0 (>51); GLUCOSE, FASTING 83 MG/DL (60-100); POTASSIUM SERUM 3.7 MMOL/L (3.5-5.1); SODIUM LEVEL 136 MMOL/L (136-145)
[2024-08-01 08:10] LABS: PROCALCITONIN 4.24 ng/ml
[2024-08-01] MEDS: metroNIDAZOLE (FLAGYL) 500MG TABLET PO ONE (09:32)
[2024-08-01] MEDS: LevoFLOXacin 750 MG TABLET PO ONE (09:33)
[2024-08-01] MEDS ORDERED: LEVO1TAB40 PO (10:05)
[2024-08-01] MEDS ORDERED: METR-265 PO (10:05)
[2024-08-01] MEDS ORDERED: ONDA-83 PO (10:05)
[2024-08-01] MEDS ORDERED: CIPR7.5D2 AS (10:05)
[2024-08-01 12:00] VITALS: BP 110/54; TEMP 98; O2SAT 100
[2024-08-01] MEDS: METOCLOPRAMIDE INJ 10MG/2ML VIAL IV ONE (12:21)
[2024-08-01] MEDS ORDERED: METO5TAB2 PO (15:12)
== END 2024-08-01 16:00 | disposition home or self-care (01) | DRG 420 ==
LOC: M ED 08:39 → M ED INP 14:21 → M PCU 15:14
PROVIDERS: ADMIT Student in an Organized Health Care Education/Training Program; ATTEND Student in an Organized Health Care Education/Training Program
PROC: B246ZZZ Ultrasonography of Right and Left Heart (ICD-10-PCS; principal; 2024-07-27)
DX: E10.65 Type 1 diabetes mellitus with hyperglycemia (principal); N17.9 Acute kidney failure, unspecified; I95.9 Hypotension, unspecified; R65.10 Systemic inflammatory response syndrome (SIRS) of non-infectious origin without acute organ dysfunction; K31.84 Gastroparesis; E10.43 Type 1 diabetes mellitus with diabetic autonomic (poly)neuropathy; E03.9 Hypothyroidism, unspecified; I10 Essential (primary) hypertension; E78.5 Hyperlipidemia, unspecified; R74.01 Elevation of levels of liver transaminase levels; R01.1 Cardiac murmur, unspecified; A08.8 Other specified intestinal infections; B97.29 Other coronavirus as the cause of diseases classified elsewhere; H60.92 Unspecified otitis externa, left ear; Z79.4 Long term (current) use of insulin; Z79.899 Other long term (current) drug therapy

== ENCOUNTER 2024-08-02 19:07 | Emergency (ER) | payer BC ==
[~2024-08-02] VITALS: Ht 165.1 cm; Wt 61.4 kg
[~2024-08-02 19:07] MED LIST changes: +CIPR7.5D2 AS; +LEVO1TAB40 PO; +METO5TAB2 PO; +METR-265 PO; +ONDA-83 PO
[2024-08-02 19:10] VITALS: BP 119/72; TEMP 97.9; O2SAT 100
[2024-08-02 21:18] LABS: BASO % 0.5 % (0.0-1.0); EOS % 0.3 % (0.0-3.0); HEMATOCRIT 41.2 % (36.0-47.0); HEMOGLOBIN 13.9 g/dl (12.0-15.5); LYMPH # 1.4 10^3/uL (1.5-5.0); LYMPH % 15.2 % (24.0-44.0); MEAN CORPUSCULAR HEMOGLOBIN 28.9 pg (27.0-33.0); MEAN CORPUSCULAR HGB CONC 33.7 g/dl (32.0-36.5); MEAN CORPUSCULAR VOLUME 85.7 fl (80.0-96.0); MONO # 0.9 10^3/uL (0.0-0.8); MONO % 10.4 % (2.0-8.0); NEUTROPHILS # 6.3 10^3/uL (1.5-8.5); NEUTROPHILS % 71.6 % (36.0-66.0); PLATELET COUNT, AUTOMATED 373 10^3/uL (150-450); RED BLOOD COUNT 4.81 10^6/uL (4.00-5.40); WHITE BLOOD COUNT 8.9 10^3/uL (4.0-10.0)
[2024-08-02 21:42] LABS: LIPASE 43 U/L (12-53)
[2024-08-02 21:46] LABS: ALBUMIN 3.3 G/DL (3.2-5.2); ALKALINE PHOSPHATASE 75 U/L (35-104); ALT/SGPT 58 U/L (7.0-40); AST/SGOT 43 U/L (<34); BILIRUBIN,DIRECT 0.1 MG/DL (<0.4); BILIRUBIN,TOTAL 0.5 MG/DL (0.3-1.2); BLOOD UREA NITROGEN 23 MG/DL (9-23); CALCIUM LEVEL 9.9 MG/DL (8.5-10.1); CARBON DIOXIDE LEVEL 30 MMOL/L (20-31); CHLORIDE LEVEL 100 MMOL/L (98-107); CREATININE FOR GFR 0.87 MG/DL (0.55-1.30); GLOMERULAR FILTRATION RATE > 60.0 (>51); GLUCOSE, FASTING 184 MG/DL (60-100); POTASSIUM SERUM 5.2 MMOL/L (3.5-5.1); SODIUM LEVEL 138 MMOL/L (136-145); TOTAL PROTEIN 7.7 G/DL (5.7-8.2)
== END 2024-08-03 00:40 | disposition left against medical advice (07) ==
LOC: M ED 19:07
DX: Z53.21 Procedure and treatment not carried out due to patient leaving prior to being seen by health care provider (principal)

== ENCOUNTER → 2025-04-01 | Outpatient (CLI) | payer BC ==
[~2025-04-01] MED LIST changes: -PRAV10TA3 PO; +PRAV10TA43 PO
== END ==
LOC: M RAD 07:10
PROVIDERS: ATTEND Physician Assistant
DX: K31.84 Gastroparesis (principal)
CPT/HCPCS: 78264; A9541